=== PATIENT | female | born 1970 | race Caucasian/White ===

== ENCOUNTER → 2021-11-02 | Outpatient (CLI) | payer BC, SELFPAY ==
[2021-11-06 16:52] LABS: HPV APTIMA, High Risk Negative (Negative)
== END | disposition home or self-care (01) ==
LOC: LABSPEC 11:37
PROVIDERS: Visit Provider Student in an Organized Health Care Education/Training Program
DX: Z12.4 Encounter for screening for malignant neoplasm of cervix (principal)
CPT/HCPCS: 87624; 88175; G0145

== ENCOUNTER → 2022-02-22 | Outpatient (CLI) | payer BC, SELFPAY ==
--- NOTE | 2022-02-22 08:34 | BI_ITS ---
MAMMOGRAPHY - BILATERAL SCREENING REASON FOR EXAM: Female, 51 years old. Routine annual screening examination. PERTINENT HISTORY: Family history unknown as patient is adopted. No reported personal history of breast cancer. TECHNIQUE: Digital bilateral breast jl (3D mammographic acquisition) in the CC and MLO projections. 2-D mediolateral oblique (MLO) and craniocaudad (CC) views of both breasts were obtained. CAD: Full Field Digital Mammography with Computer Added Detection was performed. COMPARISON: Mammogram from outside hospital from 02/18/2021, 01/07/2020. FINDINGS: Breast Composition: Portions of the breasts are extremely dense which lower sensitivity of mammography. There are no dominant masses or suspicious calcifications. No other significant abnormalities are identified. There has been no significant change since the prior study. BI/SCRN MAMM (CAD)W/JL BILAT IMPRESSION: Stable bilateral screening mammogram. Yearly follow-up mammogram recommended. (A) ASSESSMENT CATEGORY: BIRADS Category 1: Negative. A letter regarding these results will be sent to the patient by the facility within 30 days. Approximately 10% of breast cancers are not detected by mammography. A normal mammogram should not delay biopsy of a clinically suspicious abnormality. Electronically Signed: Bishnu Manriquez, at 9:37 EST ,
== END | disposition home or self-care (01) ==
LOC: OPBI 08:31
PROVIDERS: Visit Provider Student in an Organized Health Care Education/Training Program
DX: Z12.31 Encounter for screening mammogram for malignant neoplasm of breast (principal)
CPT/HCPCS: 77063; 77067

== ENCOUNTER → 2023-02-09 | Outpatient (CLI) | payer BC, SELFPAY ==
[2023-02-09 13:58] LABS: Absolute Lymphocyte Count 3.73 X10^3/uL (0.83-4.51); Absolute Neutrophil Count 5.4 X10^3/uL (2.0-7.7); Basophil# 0.05 X10^3/uL; Basophil% 0.5 % (0-1); Eosinophil# 0.08 X10^3/uL; Eosinophils% 0.8 % (0-5); Hematocrit 41.4 % (37-47); Hemoglobin 13.4 g/dL (12.0-15.0); Lymphocyte # 3.73 X10^3/ul (0.83-4.51); Lymphocyte % 36.9 % (19-41); Mean Corp Hgb Conc 32.4 g/dL (32-36); Mean Corpuscular Hgb 28.6 pg (27.0-32.0); Mean Corpuscular Volume 88.3 fL (81-99); Mean Platelet Vol. 9.9 fl (6.2-12.0); Monocyte# 0.78 X10^3/uL; Monocyte% 7.7 % (0-10); NRBC Flagged by Analyzer 0 % (0-5); Neutrophil # 5.44 X10^3/uL (2.7-7.7); Neutrophil % 53.8 % (47-70); Platelet Count 330 K/mm3 (150-450); RBC Distribution Width SD 45.4 fl (35.1-43.9); Red Blood Count 4.69 M/mm3 (4.2-5.4); White Blood Count 10.1 K/mm3 (4.4-11.0)
[2023-02-09 14:17] LABS: Anion Gap 3 (5-15); BUN 17 mg/dL (7-18); BUN/Creat Ratio 18.3 RATIO (10-20); Calcium,Total 9.3 mg/dL (8.5-10.1); Chloride 105 mmol/L (98-107); Creatinine, Serum 0.93 mg/dL (0.55-1.02); EST Glomerular Filtration Rate 68 mL/min (>60); Est Glom Filt Rate - Afr Amer 82 mL/min (>60); Glucose 107 mg/dL (74-106); Potassium 3.9 mmol/L (3.5-5.1); Sodium Level 138 mmol/L (136-145)
[2023-02-09 14:43] LABS: International Normalized Ratio 0.9; Partial Thromboplast Time 28.6 Seconds (24.1-36.2); Prothrombin Time (Protime)PT. 12.6 SECONDS (11.7-14.9)
== END | disposition home or self-care (01) ==
LOC: LAB 13:21
PROVIDERS: PCP Family Medicine
DX: Z01.818 Encounter for other preprocedural examination (principal)
CPT/HCPCS: 36415; 80048; 85025; 85610; 85730

== ENCOUNTER → 2023-03-08 | Outpatient (CLI) | payer BC, SELFPAY ==
[2023-03-13 18:07] LABS: HPV APTIMA, High Risk Negative (Negative)
== END | disposition home or self-care (01) ==
PROVIDERS: PCP Family Medicine; Visit Provider Nurse Practitioner Women's Health
DX: Z12.4 Encounter for screening for malignant neoplasm of cervix (principal)
CPT/HCPCS: 87624; 88175; G0145

== ENCOUNTER → 2023-03-15 | Outpatient (CLI) | payer BC, SELFPAY ==
--- NOTE | 2023-03-15 12:14 | BI_ITS ---
MAMMOGRAPHY - BILATERAL SCREENING REASON FOR EXAM: Female, 52 years old. Routine annual screening examination. PERTINENT HISTORY: Non-contributory. TECHNIQUE: Digital bilateral breast jl (3D mammographic acquisition) in the CC and MLO projections. 2-D mediolateral oblique (MLO) and craniocaudad (CC) views of both breasts were obtained. CAD: Full Field Digital Mammography with Computer Added Detection was performed. COMPARISON: Comparison is made with prior study dated February 22, 2022. FINDINGS: Breast Composition: The breasts are heterogeneously dense, which may obscure small masses. There are no dominant masses or suspicious calcifications. No other significant abnormalities are identified. There has been no significant change since the prior study. BI/SCRN MAMM (CAD)W/JL BILAT IMPRESSION: Stable bilateral screening mammogram. Yearly follow-up mammogram recommended. (A) ASSESSMENT CATEGORY: BIRADS Category 1: Negative. A letter regarding these results will be sent to the patient by the facility within 30 days. Approximately 10% of breast cancers are not detected by mammography. A normal mammogram should not delay biopsy of a clinically suspicious abnormality. [id number] Electronically Signed: Burton Davis MD at 8:50 EST ,
== END | disposition home or self-care (01) ==
LOC: OPBI 12:14
PROVIDERS: PCP Family Medicine; Referring Provider Nurse Practitioner Women's Health; Visit Provider Nurse Practitioner Women's Health
DX: Z12.31 Encounter for screening mammogram for malignant neoplasm of breast (principal)
CPT/HCPCS: 77063; 77067

== ENCOUNTER → 2023-04-13 | Outpatient (CLI) | payer BC, SELFPAY ==
[2023-04-13 12:11] LABS: Absolute Lymphocyte Count 2.67 X10^3/uL (0.83-4.51); Absolute Neutrophil Count 3.4 X10^3/uL (2.0-7.7); Basophil# 0.06 X10^3/uL; Basophil% 0.9 % (0-1); Eosinophil# 0.07 X10^3/uL; Hematocrit 41.5 % (37-47); Hemoglobin 13.5 g/dL (12.0-15.0); Lymphocyte # 2.67 X10^3/ul (0.83-4.51); Lymphocyte % 39.1 % (19-41); Mean Corp Hgb Conc 32.5 g/dL (32-36); Mean Corpuscular Hgb 28.7 pg (27.0-32.0); Mean Corpuscular Volume 88.1 fL (81-99); Mean Platelet Vol. 10.2 fl (6.2-12.0); Monocyte# 0.63 X10^3/uL; Monocyte% 9.2 % (0-10); NRBC Flagged by Analyzer 0 % (0-5); Neutrophil # 3.37 X10^3/uL (2.7-7.7); Neutrophil % 49.5 % (47-70); Platelet Count 314 K/mm3 (150-450); RBC Distribution Width CV 13.3 % (11.6-14.6); RBC Distribution Width SD 43.7 fl (35.1-43.9); Red Blood Count 4.71 M/mm3 (4.2-5.4); White Blood Count 6.8 K/mm3 (4.4-11.0)
[2023-04-13 12:58] LABS: ALB/GLOB Ratio 1.2 RATIO (0.9-2.4); AST(SGOT) 17 U/L (15-37); Alanine Aminotransfer ALT/SGPT 25 U/L (13-56); Albumin, Serum 3.9 g/dL (3.2-5.0); Alkaline Phosphatase 73 U/L (45-117); Anion Gap 4 (5-15); BUN 13 mg/dL (7-18); BUN/Creat Ratio 17.3 RATIO (10-20); Calcium,Total 9.3 mg/dL (8.5-10.1); Chloride 109 mmol/L (98-107); Cholesterol 139 mg/dL (200); Creatinine, Serum 0.75 mg/dL (0.55-1.02); EST Glomerular Filtration Rate 86 mL/min (>60); Est Glom Filt Rate - Afr Amer 105 mL/min (>60); Globulin 3.3 g/dL (2.2-4.2); Glucose 101 mg/dL (74-106); High Density Lipoprotein 35 mg/dL; Potassium 3.8 mmol/L (3.5-5.1); Protein, Total 7.2 g/dL (6.4-8.2); Sodium Level 142 mmol/L (136-145); Thyroid Stim Hormone (TSH) 2.78 uIU/mL (0.358-3.74); Triglycerides 144 mg/dL; Very Low Density Lipoprotein 29 mg/dL (5-40)
[2023-04-13 13:57] LABS: Microalbumin,Random Urine 7.2 mg/L (NO RANGE EST.); Microalbumin:Creatinine Ratio 4.4 mg/g CRE (<30 mg/g CRE)
== END | disposition home or self-care (01) ==
LOC: MFPLAB 09:50
PROVIDERS: PCP Family Medicine; Visit Provider Family Medicine
DX: I10 Essential (primary) hypertension (principal); Z86.73 Personal history of transient ischemic attack (TIA), and cerebral infarction without residual deficits
CPT/HCPCS: 36415; 80053; 80061; 82043; 82570; 84443; 85025

== ENCOUNTER → 2023-11-01 | Outpatient (CLI) | payer BC, SELFPAY ==
--- NOTE | 2023-11-01 15:43 | MRI_ITS ---
INDICATION: visual changes, dizziness, hx CVA and caroted stent EXAMINATION: MRI - MR Brain WO/W Contrast TECHNIQUE: Multiplanar and multisequence MR images of the brain were obtained without and with gadolinium. IV Contrast Dosage and Agent: 15 ml clariscan IV contrast. COMPARISON: None FINDINGS: BRAIN PARENCHYMA: Normal midline developmental anatomy. No Chiari malformation. Unremarkable sella. Cerebellar pontine angles are clear. No evidence of intracranial space occupying mass or mass effect. No diffusion restriction. No evidence of prior hemorrhage. Left lateral inferior frontal and left parietal localized encephalomalacia with volume loss and mild gliosis compatible with prior injuries. No abnormal brain parenchymal or meningeal enhancement. 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 Minimal periventricular and subcortical T2 hyperintense chronic small vessel white matter signal change. INTERNAL AUDITORY CANALS: The internal auditory canals are well visualized and patent. No mass identified. CSF SPACES: Appropriate for age. No hydrocephalus. Basal cisterns are patent. VASCULAR SYSTEM: Normal flow voids in the major intracranial circulation. CALVARIUM, SKULL BASE, PARANASAL SINUSES AND MASTOID AIR CELLS: Clear. No expansile changes. ORBITS: Both globes, extraocular muscles, optic nerves and retrobulbar fat appear unremarkable. MRI/Brain W/WO Contrast IMPRESSION: No evidence of acute ischemic stroke or enhancing mass. 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 Electronically Signed: Eloy Zheng MD at 8:19 EDT ,
[2023-11-01 16:22] LABS: CREATININE FINGERSTICK < 1.0 mg/dL (0.55-1.02); EGFR FINGERSTICK > 60.0000 mL/min (>60)
== END | disposition home or self-care (01) ==
PROVIDERS: PCP Family Medicine; Visit Provider Family Medicine
DX: H53.9 Unspecified visual disturbance (principal); I65.29 Occlusion and stenosis of unspecified carotid artery; Z86.73 Personal history of transient ischemic attack (TIA), and cerebral infarction without residual deficits
CPT/HCPCS: 70553; A9575

== ENCOUNTER → 2024-03-11 | Outpatient (CLI) | payer BC, SELFPAY ==
[2024-03-14 14:08] LABS: HPV APTIMA, High Risk Negative (Negative)
== END | disposition home or self-care (01) ==
LOC: BWCLAB 11:00
PROVIDERS: PCP Family Medicine; Referring Provider Obstetrics & Gynecology; Visit Provider Obstetrics & Gynecology
DX: Z12.4 Encounter for screening for malignant neoplasm of cervix (principal)
CPT/HCPCS: 87624; 88175; G0145

== ENCOUNTER → 2024-03-19 | Outpatient (CLI) | payer BC, SELFPAY ==
--- NOTE | 2024-03-19 09:41 | BI_ITS ---
MAMMOGRAPHY - BILATERAL SCREENING REASON FOR EXAM: Female, 53 years old. Routine annual screening examination. PERTINENT HISTORY: Non-contributory. TECHNIQUE: Digital bilateral breast jl (3D mammographic acquisition) in the CC and MLO projections. 2-D mediolateral oblique (MLO) and craniocaudad (CC) views of both breasts were obtained. CAD: Full Field Digital Mammography with Computer Added Detection was performed. COMPARISON: Comparison is made with prior study dated September 13, 2023 and February 22, 2022. FINDINGS: Breast Composition: The breasts are heterogeneously dense, which may obscure small masses. There is a 5.5 mm x 3 mm well-defined nodule in the upper lateral aspect of the left breast. Correlation with ultrasound recommended. Stable benign-appearing bilateral axillary lymph nodes. No other significant abnormalities are identified. BI/SCRN MAMM (CAD)W/JL BILAT IMPRESSION: 5.5 mm x 3 mm well-defined nodule in the upper lateral aspect of the left breast as described. Correlation with ultrasound is recommended. ASSESSMENT CATEGORY: BIRADS Category 0: Incomplete. Need additional imaging evaluation. A letter regarding these results will be sent to the patient by the facility within 30 days. Approximately 10% of breast cancers are not detected by mammography. A normal mammogram should not delay biopsy of a clinically suspicious abnormality. [id number] Electronically Signed: Burton Davis MD at 10:55 EST ,
== END | disposition home or self-care (01) ==
LOC: OPBI 09:40
PROVIDERS: PCP Family Medicine; Referring Provider Obstetrics & Gynecology; Visit Provider Obstetrics & Gynecology
DX: Z12.31 Encounter for screening mammogram for malignant neoplasm of breast (principal)
CPT/HCPCS: 77063; 77067

== ENCOUNTER → 2024-03-21 | Outpatient (CLI) | payer BC, SELFPAY ==
--- NOTE | 2024-03-21 08:31 | US_ITS ---
STUDY: ULTRASOUND BREAST - LEFT REASON FOR EXAM: Female, 53 years old. Abnormal screening mammogram. TECHNIQUE: Axial and longitudinal images of the LEFT breast were performed with a high resolution ultrasound transducer. # OF IMAGES: 22 COMPARISON: Comparison is made with prior study dated March 19, 2024. FINDINGS: LEFT Breast: The upper outer quadrant of the left breast was examined with ultrasound. There is a 5 mm x 6 mm x 3 mm cyst at the 2:00 position of the breast at 8 cm from the nipple. US/Breast Limited Unilateral IMPRESSION: 5 mm x 6 mm x 3 mm cyst at the 2:00 position of the breast at 8 cm from the nipple. ASSESSMENT CATEGORY: BIRADS Category 2: Benign. A letter regarding these results will be sent to the patient by the facility within 30 days. Electronically Signed: Burton Davis MD at 12:48 EST ,
== END | disposition home or self-care (01) ==
PROVIDERS: PCP Family Medicine; Referring Provider Obstetrics & Gynecology; Visit Provider Obstetrics & Gynecology
DX: N63.21 Unspecified lump in the left breast, upper outer quadrant (principal)
CPT/HCPCS: 76642

== ENCOUNTER → 2024-06-03 | Outpatient (CLI) | payer SELFPAY ==
[2024-06-03 18:15] LABS: Absolute Lymphocyte Count 4.19 X10^3/uL (0.83-4.51); Absolute Neutrophil Count 4.1 X10^3/uL (2.0-7.7); Basophil# 0.04 X10^3/uL; Basophil% 0.4 % (0-1); Eosinophil# 0.09 X10^3/uL; Hematocrit 39.2 % (37-47); Hemoglobin 12.9 g/dL (12.0-15.0); Lymphocyte # 4.19 X10^3/ul (0.83-4.51); Lymphocyte % 45.4 % (19-41); Mean Corp Hgb Conc 32.9 g/dL (32-36); Mean Corpuscular Hgb 28.7 pg (27.0-32.0); Mean Corpuscular Volume 87.1 fL (81-99); Mean Platelet Vol. 9.7 fl (6.2-12.0); Monocyte# 0.74 X10^3/uL; NRBC Flagged by Analyzer 0 % (0-5); Neutrophil # 4.13 X10^3/uL (2.7-7.7); Neutrophil % 44.9 % (47-70); Platelet Count 341 K/mm3 (150-450); RBC Distribution Width SD 44.7 fl (35.1-43.9); White Blood Count 9.2 K/mm3 (4.4-11.0)
[2024-06-03 18:45] LABS: Erythrocyte Sedimentation Rate 16 mm/hr (0-30)
[2024-06-03 19:32] LABS: CRP 5.81 mg/L (0.0-3.0)
== END | disposition home or self-care (01) ==
LOC: MTLAB 17:02
PROVIDERS: PCP Family Medicine; Referring Provider Ophthalmology; Visit Provider Ophthalmology
DX: G45.3 Amaurosis fugax (principal)
CPT/HCPCS: 36415; 85025; 85652; 86140

== ENCOUNTER → 2024-06-17 | Outpatient (CLI) | payer BC, SELFPAY ==
[2024-06-17 11:44] LABS: ALB/GLOB Ratio 1.6 RATIO (0.9-2.4); AST(SGOT) 20 U/L (<=31); Alanine Aminotransfer ALT/SGPT 20 U/L (<=34); Albumin, Serum 4.2 g/dL (3.5-5.0); Alkaline Phosphatase 68 U/L (35-104); Anion Gap 11 (5-15); BUN 13 mg/dL (4-19); BUN/Creat Ratio 18.1 RATIO (10-20); Calcium,Total 9.2 mg/dL (7.6-11.0); Carbon Dioxide 24.6 mmol/L (21.0-32.0); Chloride 103 mmol/L (98-108); Cholesterol 178 mg/dL (<=200); Creatinine, Serum 0.71 mg/dL (0.70-1.20); EST Glomerular Filtration Rate 103 (>60); Globulin 2.5 g/dL (2.2-4.2); Glucose 96 mg/dL (70-99); High Density Lipoprotein 34 mg/dL; Low Density Lipoprotein Calc. 106 mg/dL; Potassium 3.9 mmol/L (3.3-5.1); Protein, Total 6.7 g/dL (5.9-8.4); Sodium Level 139 mmol/L (133-145); Total Bilirubin 0.26 mg/dL (0.00-1.30); Triglycerides 192 mg/dL; Very Low Density Lipoprotein 38 mg/dL (5-40); cholesterol:hdl ratio screen 5.27
== END | disposition home or self-care (01) ==
LOC: MTLAB 08:54
PROVIDERS: PCP Family Medicine; Referring Provider Family Medicine; Visit Provider Family Medicine
DX: Z86.73 Personal history of transient ischemic attack (TIA), and cerebral infarction without residual deficits (principal)
CPT/HCPCS: 36415; 80053; 80061

== ENCOUNTER → 2024-06-18 | Outpatient (CLI) | payer BC, SELFPAY ==
--- NOTE | 2024-06-18 12:01 | MRI_ITS ---
PROCEDURE: BRAIN W/WO CONTRAST 06/18/2024 REASON FOR EXAM: OCCLUSION OF LT ICA,STENOSIS TECHNIQUE: Brain MRI without and with intravenous contrast with additional dedicated imaging of the IACs. Multiplanar and multisequence images were obtained. CONTRAST: 15 mL of intravenous Clariscan was administered. COMPARISON: None FINDINGS: No diffusion restriction to suggest acute/subacute ischemia. No evidence of acute intracranial hemorrhage, midline shift or mass effect. A couple of small areas of cortical encephalomalacia within the left frontal and frontoparietal lobe consistent with chronic insults. No other parenchymal signal abnormalities. No hydrocephalus. Cerebral volume is age-appropriate. No pathologic enhancement. Loss of the distal left ICA flow void consistent with history of left carotid occlusion. Globes are intact. Paranasal sinuses and mastoid air cells are relatively clear. MRI/Brain W/WO Contrast IMPRESSION: 1. No acute intracranial abnormality or pathologic enhancement. 2. Small areas of cortical encephalomalacia in the left cerebrum as above consi stent with old insults. 3. Occlusion of the distal left ICA. Reading Location: [facility]
--- NOTE | 2024-06-18 12:02 | MRI_ITS ---
PROCEDURE: MRA HEAD ONLY WITHOUT CONTRAST 06/18/2024 REASON FOR EXAM: L INTERNAL CAROTID ATRERY OCCULSION, R STENOSIS COMPARISON: None TECHNIQUE: 3D Time of Flight MRA of the head. Multiplanar multisequential imaging was performed without IV contrast administration. FINDINGS: Non-opacification of the distal left internal carotid artery including its cervical, petrous, cavernous and clinoid segments with reconstitution at the terminus. Distal vertebral arteries are without significant stenosis. Visualized cerebellar arteries are without occlusion. Basilar artery is without significant stenosis. Posterior cerebral arteries are without significant stenosis. Middle cerebral arteries are without significant stenosis. Anterior cerebral arteries are without significant stenosis. No sizable aneurysm. MRI/MRA Head ONLY without Contrast IMPRESSION: 1. Occlusion of the distal left ICA as above. 2. No high-grade stenosis, occlusion or sizable aneurysm involving the [facility]. Reading Location: [facility]
--- NOTE | 2024-06-18 12:03 | MRI_ITS ---
PROCEDURE: MRA NECK WITHOUT CONTRAST 06/18/2024 REASON FOR EXAM: L INTERNAL CAROTID ATRERY OCCULSION, R STENOSIS, TECHNIQUE: Neck MRA without contrast using 2D and 3D Time of Flight technique. FINDINGS: Flow: 2D Time of Flight images demonstrate antegrade carotid and vertebral artery flow. Carotids: No evidence of significant stenosis on time of flight imaging. Limited noncontrast exam. Right ICA stenosis (NASCET): Occluded proximally with reconstitution in the mid cervical ICA. % Left ICA stenosis (NASCET): Occluded % Vertebrals: Codominant without evidence of high grade stenosis. Arch: MRI/MRA Neck without Contrast IMPRESSION: Occluded internal carotid arteries bilaterally. Patent vertebral arteries bilaterally. Reading Location: [facility]
== END | disposition home or self-care (01) ==
LOC: OPMRI 11:54
PROVIDERS: PCP Family Medicine
DX: I65.23 Occlusion and stenosis of bilateral carotid arteries (principal); Z95.828 Presence of other vascular implants and grafts
CPT/HCPCS: 70544; 70547; 70553; A9575

== ENCOUNTER → 2024-07-03 | Outpatient (CLI) | payer BC, SELFPAY ==
[2024-07-03 13:34] LABS: Cholesterol 181 mg/dL (<=200); High Density Lipoprotein 34 mg/dL; Low Density Lipoprotein Calc. 106 mg/dL; Triglycerides 202 mg/dL; Very Low Density Lipoprotein 40 mg/dL (5-40); cholesterol:hdl ratio screen 5.28
== END | disposition home or self-care (01) ==
LOC: MTLAB 09:46
PROVIDERS: PCP Family Medicine; Referring Provider Family Medicine; Visit Provider Family Medicine
DX: Z86.73 Personal history of transient ischemic attack (TIA), and cerebral infarction without residual deficits (principal)
CPT/HCPCS: 36415; 80061

== ENCOUNTER → 2024-08-28 | Outpatient (CLI) | payer BC, SELFPAY ==
[2024-08-28 12:41] LABS: Hematocrit 40.4 % (37-47); Hemoglobin 13.3 g/dL (12.0-15.0); Mean Corp Hgb Conc 32.9 g/dL (32-36); Mean Corpuscular Volume 87.1 fL (81-99); Mean Platelet Vol. 10.3 fl (6.2-12.0); Platelet Count 332 K/mm3 (150-450); RBC Distribution Width CV 13.6 % (11.6-14.6); RBC Distribution Width SD 43.4 fl (35.1-43.9); Red Blood Count 4.64 M/mm3 (4.2-5.4); White Blood Count 7.7 K/mm3 (4.4-11.0)
[2024-08-28 13:41] LABS: AST(SGOT) 21 U/L (<=31); Alanine Aminotransfer ALT/SGPT 18 U/L (<=34); Albumin, Serum 4.5 g/dL (3.5-5.0); Alkaline Phosphatase 72 U/L (35-104); Anion Gap 11 (5-15); BUN 10 mg/dL (4-19); BUN/Creat Ratio 13.9 RATIO (10-20); Calcium,Total 9.4 mg/dL (7.6-11.0); Carbon Dioxide 24.9 mmol/L (21.0-32.0); Chloride 103 mmol/L (98-108); Cholesterol 253 mg/dL (<=200); Globulin 2.9 g/dL (2.2-4.2); Glucose 96 mg/dL (70-99); Low Density Lipoprotein Calc. 163 mg/dL; Potassium 3.9 mmol/L (3.3-5.1); Triglycerides 265 mg/dL; Very Low Density Lipoprotein 53 mg/dL (5-40); Vitamin B12 975 pg/mL (180-914); cholesterol:hdl ratio screen 6.89
[2024-08-30 12:08] LABS: ANTINUCLEAR ANTIBODIES DIRECT Negative (Negative); Vitamin D 1,25-Dihydroxy 41.9 pg/mL (24.8-81.5)
== END | disposition home or self-care (01) ==
PROVIDERS: PCP Family Medicine; Referring Provider Psychiatry & Neurology Neurology; Visit Provider Psychiatry & Neurology Neurology
DX: I67.5 Moyamoya disease (principal); Z86.73 Personal history of transient ischemic attack (TIA), and cerebral infarction without residual deficits
CPT/HCPCS: 36415; 80053; 80061; 81240; 81241; 82607; 82652; 82747; 84425; 84443; 85014; 85027; 85300; 85301; 85302; 85303; 85305; 85306; 85652; 86038; 86147; 86160; 86162; 86225

== ENCOUNTER → 2024-09-06 | Outpatient (CLI) | payer BC, SELFPAY ==
--- OUTSIDE RECORDS SUMMARY | 2024-09-06 08:23 | XMS RPT_ITS | CCD ---
Author Organization [facility] Care Team Providers Care Sleeve Setter Name Role Phone Care Physician, No Primary Referring Provider Un available Lyndon EDUCATIONAL AID, ANANDA Pardo Attending Provider Dr. James Arteaga Primary Care Provider [phone] Chandler MARCELINO, Dr. Ramirez Primary Care Provider Dr. James Arteaga MD Referring Provider Dr. Natalie Elizabeth DO Attending Provider Dr. Natalie Elizabeth DO Referring Provider Susan MARCELINO, Dr. Redmond Attending Provider Dr. Ruy Davis MD Referring Provider Dr. James Arteaga MD Attending Provider DAVID HILLIARD Attending Provider DAVID HILLIARD Referring Provider Dr. James Arteaga MD Primary Care Provider Chandler MARCELINO, Dr. Ramirez Referring Provider Yaya MARCELINO, Dr. Foreman Attending Provider James Arteaga Attending Unavailable Chandler, James Referring Unavailable Arteaga, James Primary Care Unavailable JAKOB POLLACK Attending Unavailable JAKOB POLLACK Referring Unavailable Arteaga, James Primary Care Unavailable Ruy Davis Attending Unavailable Ruy Davis Referring Unavailable Arteaga, James Primary Care Unavailable Arteaga, James Attending Unavailable Arteaga, James Referring Unavailable Arteaga, James Primary Care Unavailable Arteaga, James Primary Care Unavailable JAKOB POLLACK Referring Unavailable James Arteaga Attending Unavailable Natalie Elizabeth Referring Unavailabl e Arteaga, James Primary Care Unavailable Natalie Elizabeth Attending Unavailamie Arteaga, James Primary Care Unavailable Ahsan Javier Attending Unavailable Ahsan Javier Referring Unavailable Arteaga, James Referring Unavailable Arteaga, James Primary Care Unavailable Ahsan Javier Attending Unavailable Arteaga, James Referring Unavailable Arteaga, James Primary Care Unavailable Natalie Elizabeth Attending Unavailamie e Chandler, James Primary Care Unavailable Natalie Elizabeth Attending Natalie Valdez Referring Unavailabl e Chandler, James Primary Care Unavailable Natalie Elizabeth Attending Natalie Valdez Referring Unavailamie Javier MD, Dr. Foreman Referring Provider Allergies Allergy Classification Reported Allergen(s) Allergy Type Date of Onset Reaction(s) Facility (8 sources) Codeine Drug Allergy 03-08-2023 Vomiting [facility] (8 sources) Penicillins Allergy to substance 03-08-2023 Swelling [facility] Comment on above: Face and neck swelli ng (1 source) Codeine Drug Allergy 08-27-2024 [facility] Repository (1 source) Penicillins Drug allergy (disorder) 08-27-2024 [facility] Repository Medications Current Medications Medication Drug Class(es) Dates Sig (Normalized) Sig (Original) aspirin 81 mg delayed release oral tablet (8 sources) Platelet Aggregation Inhibitor, Nonsteroidal Anti-inflammatory Drug Start: 03-08-2023 take 1 tablet by mouth once daily Aspirin (Adult Aspirin Regimen) 81 mg tablet,delayed release (DR/EC) Active 81 mg PO DAILY March 08, 2023 1:00am clopidogrel 75 mg oral tablet (10 sources) P2Y12 Platelet Inhibitor Start: 08-27-2024 take 1 tablet by mouth once daily Clopidogrel 75 mg tablet Active 75 mg PO daily August 27, 2024 12:00am Start: 03-08-2023 End: 03-11-2024 take 1 tablet by mouth once daily Clopidogrel (Plavix) 75 mg tablet Discontinued 75 mg PO DAILY March 08, 2023 1:00am March 11, 2024 9:22am Gshdxivp-Igayhg-Rguqmnnk Acid 500 mg-800 mcg- 50 mg capsule (2 sources) Start: 08-27-2024 take 1 capsule by mouth once daily Auzvnayv-Dbumuh-Otfpcccy Acid 500 mg-800 mcg- 50 mg capsule Active 1 NMA PO daily August 27, 2024 12:00am hydroCHLOROthiazide 12.5 mg oral capsule (12 sources) Thiazide Diuretic Start: 08-27-2024 take 6.25 mg by mouth once daily Hydrochlorothiazide 12.5 mg capsule Active 6.25 mg PO DAILY August 27, 2024 8:56am Start: 08-27-2024 End: 08-27-2024 take 6.25 mg by mouth once daily Hydrochlorothiazide 12.5 mg tablet Discontinued 6.25 mg PO daily August 27, 2024 12:00am August 27, 2024 10:16am Start: 03-08-2023 End: 08-27-2024 take 1 capsule by mouth once daily Hydrochlorothiazide 12.5 mg capsule Discontinued 12.5 mg PO DAILY March 08, 2023 1:00am August 27, 2024 8:58am Multivitamin preparation (3 sources) Start: 03-08-2023 take 1 tablet by mouth once daily Multivitamin Active 1 TABLET PO DAILY March 08, 2023 12:00am Multivitamin tablet (5 sources) Start: 03-08-2023 Multivitamin t ablet Active 1 {tbl} PO DAILY March 08, 2023 1:00am sertraline 100 mg oral tablet (10 sources) Serotonin Reuptake Inhibitor Start: 08-27-2024 Sertraline (Zoloft) 100 mg tablet Active 50 mg PO DAILY August 27, 2024 8:57am Start: 03-08-2023 End: 08-27-2024 take 1 tablet by mouth once daily Sertraline (Zoloft) 100 mg tablet Discontinued 100 mg PO DAILY March 08, 2023 1:00am August 27, 2024 8:58am Completed/Discontinued Medications Medication Drug Class(es) Dates Sig (Normalized) Sig (Original) atorvastatin 40 mg oral tablet (8 sources) HMG-CoA Reductase Inhibitor Start: 03-08-2023 End: 08-27-2024 take 1 tablet by mouth once daily Atorvastatin (Lipitor) 40 mg tablet Discontinued 40 mg PO DAILY March 08, 2023 1:00am August 27, 2024 8:56am Fezolinetant (5 sources) Start: 03-11-2024 End: 08-27-2024 take 1 tablet by mouth once daily Fezolinetant (Veozah) 45 mg tablet Discontinued 45 mg PO daily 25 02March 11, 2024 1:00am August 27, 2024 8:56am Start: 03-11-2024 take 1 tablet by once daily Fezolinetant (Veozah) 45 mg tablet Active 45 mg PO daily March 11, 2024 1:00am Problems Active Problems Problem Classification Problem Date Documented Date Episodic/Chronic Mood disorders (8 sources) Depressive disorder; Translations: [Depression] 03-08-2023 Chronic Occlusion or stenosis of precerebral arteries (1 source) Occlusion and stenosis of bilateral carotid arteries; Translations: [Occlusion and stenosis of bilateral carotid arteries] Onset: 06-24-2024 Chronic Other and ill-defined cerebrovascular disease (9 sources) Moyamoya disease; 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 Other and ill-defined cerebrovascular disease (2 sources) Cerebrovascular disease; Translations: [Cerebrovascular disease, unspecified] 08-27-2024 Chronic Other and ill-defined cerebrovascular disease (1 source) Moyamoya disease; 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] Onset: 08-28-2024 Chronic Other circulatory disease (2 sources) Personal history of transient ischemic attack (TIA), and cerebral infarction without residual deficits; Translations: [Personal history of transient ischemic attack (TIA), and cerebral infarction without residual deficits] Onset: 07-08-2024 Episodic Other circulatory disease (2 sources) History of cerebrovascular accident; Translations: [Personal history of transient ischemic attack (TIA), and cerebral infarction without residual deficits] 08-27-2024 Episodic Other screening for suspected conditions (not mental disorders or infectious disease) (10 sources) Abnormal cervical Papanicolaou smear; Translations: [Unspecified abnormal cytological findings in specimens from cervix uteri] Onset: 03-30-2024 03-08-2023 Episodic Comment on above: conization 20 yr ago . Abnormal pap with +hpv 2021 neg pap and HPV. 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] Onset: 06-06-2024 Chronic Past or Other Problems Problem Classification Problem Date Documented Da te Episodic/Chronic Blindness and vision defects (1 source) Unspecified visual disturbance; Translations: [Unspecified visual disturbance] Onset: 11-21-2023 Episodic Nonmalignant breast conditions (1 source) Unspecified lump in the left breast, upper outer quadrant; Translations: [Unspecified lump in the left breast, upper outer quadrant] Onset: 04-10-2024 Episodic Results Test Name Value Interpretation Reference Range Facility GIOVANNA w/ Reflex Mult Confirmon 08-30-2024 ANTI-DNA (DS)AB TNP Normal [facility] Comment on above: Performed By: #### L 100.0500, L101.9900, L503.0106, L500.4050, L3300.0960, L3100.5450, L501.9520, L500.4100 ####[facility] [address] [place], [place], [phone] ANTI-SS-A TNP Normal [facility] Comment on above: Performed By: #### L 100.0500, L101.9900, L503.0106, L500.4050, L3300.0960, L3100.5450, L501.9520, L500.4100 ####[facility] [address] [place], [place], [phone] ANTI-SS-B TNP Normal [facility] Comment on above: Performed By: #### L 100.0500, L101.9900, L503.0106, L500.4050, L3300.0960, L3100.5450, L501.9520, L500.4100 ####[facility] [address] [place], [address] Vitamin D 1,25-Dihydroxyon 0 08-30-2024 VIT D 1,25 DIHY 41.9 pg/mL Normal 24.8-81.5 [facility] Comment on above: Performed By: #### L 100.0500, L101.9900, L503.0106, L500.4050, L3300.0960, L3100.5450, L501.9520, L500.4100 ####[facility] [address] [place], [place], [phone] Anion gap in Serum or Plasma Ordered By: Ahsan Javier on 08-28-2024 Anion gap [Moles/Vol] 11 mmol/L 5-15 [facility] BUN/creatinine ratioOrdered By: Ahsan Javier on 08-28-2024 Urea nitrogen/Creatinine [Mass ratio] 13.9 mg/mg 10-20 [facility] Bilirubin, totalOrdered By: Ahsan Javier on 08-28-2024 Bilirubin [Mass/Vol] 0.39 mg/dL 0.00-1.30 [facility] CBC-Complete Blood Cnt No Di ffon 08-28-2024 Erythrocyte distribution width (RBC) [Ratio] 13.6 % Normal 11.6-14.6 [facility] Comment on above: Performed By: #### L 100.0500, L101.9900, L503.0106, L500.4050, L3300.0960, L3100.5450, L501.9520, L500.4100 ####[facility] [address] [place], [place], [phone] Hematocrit (Bld) [Volume fraction] 40.4 % Normal 37-47 [facility] Comment on above: Performed By: #### L 100.0500, L101.9900, L503.0106, L500.4050, L3300.0960, L3100.5450, L501.9520, L500.4100 ####[facility] [address] [place], [address] Hemoglobin (Bld) [Mass/Vol] 13.3 g/dL Normal 12.0-15.0 [facility] Comment on above: Performed By: #### L 100.0500, L101.9900, L503.0106, L500.4050, L3300.0960, L3100.5450, L501.9520, L500.4100 ####[facility] [address] [place], [address]( MCH (RBC) [Entitic mass] 28.7 pg Normal 27.0-32.0 [facility] Comment on above: Performed By: #### L 100.0500, L101.9900, L503.0106, L500.4050, L3300.0960, L3100.5450, L501.9520, L500.4100 ####[facility] [address] [place], [address] MCHC (RBC) [Mass/Vol] 32.9 g/dL Normal 32-36 [facility] Comment on above: Performed By: #### L 100.0500, L101.9900, L503.0106, L500.4050, L3300.0960, L3100.5450, L501.9520, L500.4100 ####[facility] [address] [place], [address] MCV (RBC) [Entitic vol] 87.1 fL Normal 81-99 [facility] Comment on above: Performed By: #### L 100.0500, L101.9900, L503.0106, L500.4050, L3300.0960, L3100.5450, L501.9520, L500.4100 ####[facility] [address] [place], [address] Platelet mean volume (Bld) [Entitic vol] 10.3 fL Normal 6.2-12.0 [facility] Comment on above: Performed By: #### L 100.0500, L101.9900, L503.0106, L500.4050, L3300.0960, L3100.5450, L501.9520, L500.4100 ####[facility] [address] [place], [address] Platelets (Bld) [#/Vol] 332 10*3/uL Normal 150-450 [facility] Comment on above: Performed By: #### L 100.0500, L101.9900, L503.0106, L500.4050, L3300.0960, L3100.5450, L501.9520, L500.4100 ####[facility] [address] [place], [address] RBC (Bld) [#/Vol] 4.64 10*6/uL Normal 4.2-5.4 [facility] Comment on above: Performed By: #### L 100.0500, L101.9900, L503.0106, L500.4050, L3300.0960, L3100.5450, L501.9520, L500.4100 ####[facility] [address] [place], [phone]) RDW SD 43.4 fl Normal 35.1-43.9 [facility] Comment on above: Performed By: #### L 100.0500, L101.9900, L503.0106, L500.4050, L3300.0960, L3100.5450, L501.9520, L500.4100 ####[facility] [address] [place], [address] WBC (Bld) [#/Vol] 7.7 10*3/uL Normal 4.4-11.0 [facility] Comment on above: Performed By: #### L 100.0500, L101.9900, L503.0106, L500.4050, L3300.0960, L3100.5450, L501.9520, L500.4100 ####[facility] [address] [place], [place], [phone] Calculated very low density lipoprotein (VLDL) cholesterol measurementOrdered By: Ahsan Javier on 08-28-2024 Calculated very low density lipoprotein (VLDL) cholesterol measurement 53 mg/dL High 5-40 [facility] Carbon dioxide, total [Moles /volume] in Central venous bloodOrdered By: Ahsan Javier on 08-28-2024 CO2 [Moles/Vol] 24.9 mmol/L 21.0-32.0 [facility] Chloride assayOrdered By: Ra debra Javier on 08-28-2024 Chloride [Moles/Vol] 103 mmol/L 98-108 [facility] Comprehensive Metabolic Prof ilon 08-28-2024 Albumin [Mass/Vol] 4.5 g/dL Normal 3.5-5.0 [facility] Comment on above: Performed By: #### L 100.0500, L101.9900, L503.0106, L500.4050, L3300.0960, L3100.5450, L501.9520, L500.4100 ####[facility] [address] [place], [address] Albumin/Globulin [Mass ratio] 1.6 {ratio} Normal 0.9-2.4 [facility] Comment on above: Performed By: #### L 100.0500, L101.9900, L503.0106, L500.4050, L3300.0960, L3100.5450, L501.9520, L500.4100 ####[facility] [address] [place], [place], [phone] ALK PHOS 72 U/L Normal 35-104 [facility] Comment on above: Performed By: #### L 100.0500, L101.9900, L503.0106, L500.4050, L3300.0960, L3100.5450, L501.9520, L500.4100 ####[facility] [address] [place], [address] ALT [Catalytic activity/Vol] 18 U/L Normal <=34 [facility] Comment on above: Performed By: #### L 100.0500, L101.9900, L503.0106, L500.4050, L3300.0960, L3100.5450, L501.9520, L500.4100 ####[facility] [address] [place], [address] AST [Catalytic activity/Vol] 21 U/L Normal <=31 [facility] Comment on above: Performed By: #### L 100.0500, L101.9900, L503.0106, L500.4050, L3300.0960, L3100.5450, L501.9520, L500.4100 ####[facility] [address] [place], [address] Bilirubin [Mass/Vol] 0.39 mg/dL Normal 0.00-1.30 [facility] Comment on above: Performed By: #### L 100.0500, L101.9900, L503.0106, L500.4050, L3300.0960, L3100.5450, L501.9520, L500.4100 ####[facility] [address] [place], [address] BUN/CRE 13.9 RATIO Normal 10-20 [facility] Comment on above: Performed By: #### L 100.0500, L101.9900, L503.0106, L500.4050, L3300.0960, L3100.5450, L501.9520, L500.4100 ####[facility] [address] [place], [address] Calcium [Mass/Vol] 9.4 mg/dL Normal 7.6-11.0 [facility] Comment on above: Performed By: #### L 100.0500, L101.9900, L503.0106, L500.4050, L3300.0960, L3100.5450, L501.9520, L500.4100 ####[facility] [address] [place], [address] Chloride [Moles/Vol] 103 mmol/L Normal 98-108 [facility] Comment on above: Performed By: #### L 100.0500, L101.9900, L503.0106, L500.4050, L3300.0960, L3100.5450, L501.9520, L500.4100 ####[facility] [address] [place], [place], [phone] CO2 [Moles/Vol] 24.9 mmol/L Normal 21.0-32.0 [facility] Comment on above: Performed By: #### L 100.0500, L101.9900, L503.0106, L500.4050, L3300.0960, L3100.5450, L501.9520, L500.4100 ####[facility] [address] [place], [place], [phone] Creatinine [Mass/Vol] 0.71 mg/dL Normal 0.70-1.20 [facility] Comment on above: Performed By: #### L 100.0500, L101.9900, L503.0106, L500.4050, L3300.0960, L3100.5450, L501.9520, L500.4100 ####[facility] [address] [place], [place], [phone] GAP 11 Normal 5-15 [facility] Comment on above: Performed By: #### L 100.0500, L101.9900, L503.0106, L500.4050, L3300.0960, L3100.5450, L501.9520, L500.4100 ####[facility] [address] [place], [place], [phone] GFR/1.73 sq M.predicted among non-blacks MDRD (S/P/Bld) [Vol rate/Area] 102 mL/min/{1.73_m2} Normal >60 [facility] Comment on above: Result Comment: mL/m in/1.73m2 CKD-EPI Creatinine Equation (2020) Performed By: #### L 100.0500, L101.9900, L503.0106, L500.4050, L3300.0960, L3100.5450, L501.9520, L500.4100 ####[facility] [address] [place], [address] Globulin (S) [Mass/Vol] 2.9 g/dL Normal 2.2-4.2 [facility] Comment on above: Performed By: #### L 100.0500, L101.9900, L503.0106, L500.4050, L3300.0960, L3100.5450, L501.9520, L500.4100 ####[facility] [address] [place], [address] Glucose [Mass/Vol] 96 mg/dL Normal 70-99 [facility] Comment on above: Performed By: #### L 100.0500, L101.9900, L503.0106, L500.4050, L3300.0960, L3100.5450, L501.9520, L500.4100 ####[facility] [address] [place], [address] Potassium [Moles/Vol] 3.9 mmol/L Normal 3.3-5.1 [facility] Comment on above: Performed By: #### L 100.0500, L101.9900, L503.0106, L500.4050, L3300.0960, L3100.5450, L501.9520, L500.4100 ####[facility] [address] [place], [address] Sodium [Moles/Vol] 139 mmol/L Normal 133-145 [facility] Comment on above: Performed By: #### L 100.0500, L101.9900, L503.0106, L500.4050, L3300.0960, L3100.5450, L501.9520, L500.4100 ####[facility] [address] [place], [address] T PROT 7.4 g/dL Normal 5.9-8.4 [facility] Comment on above: Performed By: #### L 100.0500, L101.9900, L503.0106, L500.4050, L3300.0960, L3100.5450, L501.9520, L500.4100 ####[facility] [address] [place], [place], [phone] Urea nitrogen [Mass/Vol] 10 mg/dL Normal 4-19 [facility] Comment on above: Performed By: #### L 100.0500, L101.9900, L503.0106, L500.4050, L3300.0960, L3100.5450, L501.9520, L500.4100 ####[facility] [address] [place], [place], [phone] Erythrocyte Sed Rateon 08-28 SED RATE 12 mm/hr Normal 0-30 [facility] Comment on above: Performed By: #### L 100.0500, L101.9900, L503.0106, L500.4050, L3300.0960, L3100.5450, L501.9520, L500.4100 ####[facility] [address] [place], [place], [phone] Erythrocyte distribution wid th ratioOrdered By: Ahsan Javier on 08-28-2024 Erythrocyte distribution width (RBC) [Ratio] 13.6 % 11.6-14.6 [facility] Erythrocyte distribution wid th standard deviationOrdered By: Ahsan Javier on 08-28-2024 Erythrocyte distribution width (RBC) [Ratio] 43.4 fl 35.1-43.9 [facility] Erythrocyte sedimentation ra teOrdered By: Ahsan Javier on 08-28-2024 ESR (Bld) [Velocity] 12 mm/h 0-30 [facility] Glomerular filtration rate ( GFR) estimation/1.73 sq m using serum, plasma, or whole bOrdered By: Ahsan Javier on 08-28-2024 GFR/1.73 sq M.predicted among non-blacks MDRD (S/P/Bld) [Vol rate/Area] 102 mL/min/{1.73_m2} >60 [facility] Comment on above: mL/min/1.73m2 CKD-EP I Creatinine Equation (2020) Hematocrit Auto (Bld) [Volum e fraction]Ordered By: Ahsan Javier on 08-28-2024 Hematocrit (Bld) [Volume fraction] 40.4 % 37-47 [facility] Hemoglobin measurementOrdere d By: Ahsan Javier on 08-28-2024 Hemoglobin (Bld) [Mass/Vol] 13.3 g/dL 12.0-15.0 [facility] LDL calc ser/plasOrdered By: Ahsan Javier on 08-28-2024 Cholesterol in LDL [Mass/Vol] 163 mg/dL [facility] Comment on above: Nuxoyszjen=917-010 m g/dL & Higher Sboq=961 mg/dL or greater Laboratory - Chemistry and C hemistry - challengeOrdered By: Ahsan Javier on 08-28-2024 AST [Catalytic activity/Vol] 21 U/L <32 [facility] Lipid Profileon 08-28-2024 CHOL:HDL 6.89 Normal [facility] Comment on above: Performed By: #### L 100.0500, L101.9900, L503.0106, L500.4050, L3300.0960, L3100.5450, L501.9520, L500.4100 ####[facility] [address] [place], [place], [phone] Cholesterol [Mass/Vol] 253 mg/dL High <=200 [facility] Comment on above: Result Comment: Chol esterol level, Desirable <200 mg/dL Borderline high cholesterol 200-239 mg/dL High cholesterol >=240 mg/dL Recommendations of the NCEP Adult Treatment Panel for the following risk-cutoff thresholds for the [place] population. Performed By: #### L 100.0500, L101.9900, L503.0106, L500.4050, L3300.0960, L3100.5450, L501.9520, L500.4100 ####[facility] [address] [place], [address] Cholesterol in HDL [Mass/Vol] 37 mg/dL Low [facility] Comment on above: Result Comment: Bertha onal Cholesterol Education Program (NCEP) guidelines: <40 mg/dL: Low HDL-cholesterol (major risk factor for CHD) >= 60 mg/dL: High HDL-cholesterol (negative risk factor for CHD) HDL-cholesterol is affected by a number of factors, e.g. smoking, exercise, hormones, sex and age. Performed By: #### L 100.0500, L101.9900, L503.0106, L500.4050, L3300.0960, L3100.5450, L501.9520, L500.4100 ####[facility] [address] [place], [address] Cholesterol in LDL [Mass/Vol] 163 mg/dL Normal [facility] Comment on above: Result Comment: Bord yjksjt=099-096 mg/dL Higher Txul=314 mg/dL or greater Performed By: #### L 100.0500, L101.9900, L503.0106, L500.4050, L3300.0960, L3100.5450, L501.9520, L500.4100 ####[facility] [address] [place], [address] Cholesterol in VLDL [Mass/Vol] 53 mg/dL High 5-40 [facility] Comment on above: Performed By: #### L 100.0500, L101.9900, L503.0106, L500.4050, L3300.0960, L3100.5450, L501.9520, L500.4100 ####[facility] [address] [place], [address] Triglyceride [Mass/Vol] 265 mg/dL High [facility] Comment on above: Result Comment: The drugs N-Acetylcysteine and Metamizole may falsely depress this assay. Normal range: <150 mg/dL Borderline High: 150-199 mg/dL High: 200-499 mg/dL Very High: >500 mg/dL Performed By: #### L 100.0500, L101.9900, L503.0106, L500.4050, L3300.0960, L3100.5450, L501.9520, L500.4100 ####[facility] [address] [place], [address] MCV (mean corpuscular volume ) determinationOrdered By: Ahsan Javier on 08-28-2024 MCV (RBC) [Entitic vol] 87.1 fL 81-99 [facility] Mean corpuscular hemoglobin (MCH) determinationOrdered By: Ahsan Javier on 08-28-2024 MCH (RBC) [Entitic mass] 28.7 pg 27.0-32.0 [facility] Mean corpuscular hemoglobin concentration (MCHC) determinationOrdered By: Ahsan Javier on 08-28-2024 MCHC (RBC) [Mass/Vol] 32.9 g/dL 32-36 [facility] Mean platelet volume determi nationOrdered By: Ahsan Javier on 08-28-2024 Platelet mean volume (Bld) [Entitic vol] 10.3 fL 6.2-12.0 [facility] Platelet countOrdered By: Ra debra Javier on 08-28-2024 Platelets (Bld) [#/Vol] 332 10*3/uL 150-450 [facility] Potassium measurement (mass/ volume)Ordered By: Ahsan Javier on 08-28-2024 Potassium (Unsp spec) [Mass/Vol] 3.9 mmol/L 3.3-5.1 [facility] RBC Auto (Bld) [#/Vol]Ordere d By: Ahsan Javier on 08-28-2024 RBC (Bld) [#/Vol] 4.64 10*6/uL 4.2-5.4 [facility] Screening total cholesterol/ high density lipoprotein (HDL) cholesterol ratioOrdered By: Ahsan Javier on 08-28-2024 Cholesterol.total/Choles terol in HDL [Mass ratio] 6.89 {ratio} [facility] Serum DNA double strand anti body assay (units/volume)Ordered By: Ahsan Javier on 08-28-2024 DNA double strand Ab Qn (S) [facility] Comment on above: Test not performed Serum Scl-70 antibody assay (units/volume)Ordered By: Ahsan Javier on 08-28-2024 SCL-70 extractable nuclear Ab Qn (S) [facility] Comment on above: Test not performed Serum creatinine measurement (mass/volume)Ordered By: Ahsan Javier on 08-28-2024 Creatinine [Mass/Vol] 0.71 mg/dL 0.70-1.20 [facility] Serum globulin measurementOr dered By: Ahsan Javier on 08-28-2024 Globulin (S) [Mass/Vol] 2.9 g/dL 2.2-4.2 [facility] Serum glucose measurement (m ass/volume)Ordered By: Ahsan Javier on 08-28-2024 Glucose [Mass/Vol] 96 mg/dL 70-99 [facility] Serum or plasma alanine ricks otransferase (ALT) measurementOrdered By: Ahsan Javier on 08-28-2024 ALT [Catalytic activity/Vol] 18 U/L <35 [facility] Serum or plasma albumin maria teresa urement (mass/volume)Ordered By: Ahsan Javier on 08-28-2024 Albumin [Mass/Vol] 4.5 g/dL 3.5-5.0 [facility] Serum or plasma albumin/glob ulin mass ratioOrdered By: Ahsan Javier 08-28-2024 Albumin/Globulin [Mass ratio] 1.6 {ratio} 0.9-2.4 [facility] Serum or plasma alkaline mendez sphatase measurementOrdered By: Ahsan Javier on 08-28-2024 ALP [Catalytic activity/Vol] 72 U/L 35-104 [facility] Serum or plasma calcitriol m easurement (mass/volume)Ordered By: Ahsan Javier on 08-28-2024 1,25-dihydroxyvitamin D3 [Mass/Vol] 41.9 pg/mL 24.8-81.5 [facility] Serum or plasma calcium maria teresa urement (mass/volume)Ordered By: Ahsan Javier on 07-02-2025 Calcium [Mass/Vol] 9.4 mg/dL 7.6-11.0 [facility] Serum or plasma cholesterol in HDL measurement (mass/volume)Ordered By: Ahsan Javier on 08-28-2024 Cholesterol in HDL [Mass/Vol] 37 mg/dL Low >40 [facility] Comment on above: National Cholesterol Education Program (NCEP) guidelines:<40 mg/dL: Low HDL-cholesterol (major risk factor for CHD)>= 60 mg/dL: High HDL-cholesterol (negative risk factor for CHD)HDL-cholesterol is affected by a number of factors, e.g. smoking, exercise, hormones, sex and age. Serum or plasma cholesterol measurement (mass/volume)Ordered By: Ahsan Javier on 08-28-2024 Cholesterol [Mass/Vol] 253 mg/dL High <201 [facility] Comment on above: Cholesterol level, D esirable <200 mg/dLBorderline high cholesterol 200-239 mg/dLHigh cholesterol >=240 mg/dLRecommendations of the NCEP Adult Treatment Panel for the following risk-cutoff thresholds for the [place] population. Serum or plasma urea nitroge n measurement (mass/volume)Ordered By: Ahsan Javier on 08-28-2024 Urea nitrogen [Mass/Vol] 10 mg/dL 4-19 [facility] Sodium levelOrdered By: Mar Javier on 08-28-2024 Sodium [Moles/Vol] 139 mmol/L 133-145 [facility] TSH DL <= 0.005 mIU/L QnOrde red By: Ahsan Javier on 08-28-2024 TSH Qn 3.510 uIU/mL 0.300-4.200 [facility] Thyroid Stim Hormone (TSH)on 08-28-2024 TSH 3.510 uIU/mL Normal 0.300-4.200 [facility] Comment on above: Performed By: #### L 100.0500, L101.9900, L503.0106, L500.4050, L3300.0960, L3100.5450, L501.9520, L500.4100 ####[facility] [id number] [place], [place], [id number] Total proteinOrdered By: Isael Javier on 08-28-2024 Protein [Mass/Vol] 7.4 g/dL 5.9-8.4 [facility] Triglycerides measurementOrd ered By: Ahsan Javier on 08-28-2024 Triglyceride [Mass/Vol] 265 mg/dL High <199 [facility] Comment on above: The drugs N-Acetylcy steine and Metamizole may falsely depress this assay. Normal range: <150 mg/dLBorderline High: 150-199 mg/dLHigh: 200-499 mg/dLVery High: >500 mg/dL Vitamin B12on 08-28-2024 Cobalamin (Vitamin B12) [Mass/Vol] 975 pg/mL High 180-914 [facility] Comment on above: Performed By: #### L 100.0500, L101.9900, L503.0106, L500.4050, L3300.0960, L3100.5450, L501.9520, L500.4100 ####[facility] [id number] [place], [place], [id number] Vitamin B12 ser/plasOrdered By: Ahsan Javier on 08-28-2024 Cobalamin (Vitamin B12) [Mass/Vol] 975 pg/mL High 180-914 [facility] White blood cell (WBC) count Ordered By: Ahsan Javier on 08-28-2024 WBC (Bld) [#/Vol] 7.7 10*3/uL 4.4-11.0 [facility] Neurology Visit Reporton Neurology Visit Report [facility] [address], [address] [place], [place] [address] OFFICE VISIT Date of Service: 08/27/24 MR#: [id number] Acct: [id number] Name: EMILY MCCLENDON MAIA Rep #: [id number] : 1970 Provider: Dr. Ahsan mace MD Age/Sex: 53/F [place] [facility] [place] Status: Signed HPI HPI Details: History: The patient is a 53-year-old right-handed woman with a past medical history of hypertension who presents for evaluation of a stroke. In July 2020 she had an acute left middle cerebral artery distribution ischemic stroke that manifested with aphasia, right-sided weakness affecting the arm and leg and impaired coordination bilaterally, and blurred vision. She also had some memory impairment and confusion. She was hospitalized and on evaluation was found to have an left internal carotid artery occlusion. She was diagnosed with moyamoya disease. She was treated with aspirin and clopidogrel. 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 She has had gradual improvement of her symptoms however she still continues to have residual mild and impaired proprioception. Prior to her stroke in July 2020 she had experienced intermittent episodes of left eye blurring of vision. She was then found to have right internal carotid artery stenosis and underwent right internal carotid artery stent placement in March 2022. Her procedures were done at the [facility] and her vascular surgeon is Dr. Denis. Clopidogrel was then discontinued for period of time however since the beginning of July 2024 she has had 3 episodes of right amaurosis fugax each lasting about 15 minutes manifesting with right eye vision loss or right eye visual distortion. Clopidogrel was resumed following her third episode of amaurosis fugax on 08/16/2024 and she has had no further episodes of amaurosis fugax. She denies having headaches, numbness, swallowing difficulty, dizziness, lightheadedness, or hearing loss. She takes hydrochlorothiazide for hypertension. She reports that in years past, following her stroke in 2020, she was evaluated with a cardiac ultrasound and 30-day cardiac event monitor and these were unremarkable (official reports are presently not available). A carotid ultrasound performed on 08/16/2024 (report viewed on the patient's cell phone) indicates that at least moderate right internal carotid artery stenosis was noted. The left internal carotid artery was occluded. She was previously seen by a stockroom associate and apparently was found to have an abnormal protein S or protein C (per the patient's report; official report is presently not available) however on evaluation at that time she apparently was not felt to have a hypercoagulable state. She is taking sertraline for depression; she states this has resolved and is no longer feeling depressed. Past Medical History: As above. There is no history of hyperlipidemia, diabetes mellitus, heart disease, lung disease, seizure, thyroid disease, cancer, renal disease, or sleep apnea. Social History: She quit smoking tobacco 5 years ago. She has a prior history of alcohol abuse; she quit consuming alcohol 9 years ago. There is no history of illicit drug use. She has a masters degree. Family History: The patient is adopted and does not know her family history. Review of Systems: As above. The patient has not had any recent fever, rash, weight change, chest pain, shortness of breath, gastrointestinal problems or urinary problems. She denies having depression or anxiety presently. Physical Exam: General: Well-developed, well-nourished female in no acute distress. Neuro: The patient is awake and alert and responds appropriately however her speech is intermittently hesitant and she exhibits occasional syllable substitutions; comprehension appears preserved Cranial nerves: PERRL, 3mm bilaterally; EOMI; visual romo are full; visual acuity is 20/25 bilaterally; marginal right ptosis otherwise face is symmetrical; tongue is midline; there are no deficits to pinprick; no afferent pupillary defect is noted Cerebellar system: No nystagmus or dysmetria Deep tendon reflexes: +2 at the knees, ankles, biceps bilaterally, and brachioradialis bilaterally and absent at the triceps bilaterally; plantar responses are downward bilaterally Motor: Strength 5/5 in the biceps bilaterally, abductor pollicis brevis muscles bilaterally, first dorsal interosseous muscles bilaterally, triceps bilaterally, deltoid bilaterally, iliopsoas bilaterally, quadriceps bilaterally and foot dorsiflexors bilaterally; no drift Sensory: Decreased pinprick is noted in the right foot; there are no deficits to pinprick in the left foot or hands; there are no deficits to vibration in the feet; there are no deficits to soft touch in the feet Gait: Mildly slow HEENT: Normocephalic; atraumatic; (more content not included)... Normal [facility] Calculated very low density lipoprotein (VLDL) cholesterol measurementOrdered By: James Arteaga on 07-03-2024 Calculated very low density lipoprotein (VLDL) cholesterol measurement 40 mg/dL 5-40 [facility] LDL calc ser/plasOrdered By: James Arteaga on 07-03-2024 Cholesterol in LDL [Mass/Vol] 106 mg/dL [facility] Comment on above: Nzzehxufyn=566-939 m g/dL & Higher Crxp=204 mg/dL or greater Lipid Profileon 07-03-2024 CHOL:HDL 5.28 Normal [facility] Comment on above: Order Comment: Order Date: 05/09/24 Order Info: [id number] - LIPID Performed By: #### L 500.4100 #### [facility] [address] [place], [address] Cholesterol [Mass/Vol] 181 mg/dL Normal <=200 [facility] Comment on above: Order Comment: Order Date: 05/09/24 Order Info: [id number] - LIPID Result Comment: Chol esterol level, Desirable <200 mg/dL Borderline high cholesterol 200-239 mg/dL High cholesterol >=240 mg/dL Recommendations of the NCEP Adult Treatment Panel for the following risk-cutoff thresholds for the [place] population. Performed By: #### L 500.4100 #### [facility] [address] [place], [address] Cholesterol in HDL [Mass/Vol] 34 mg/dL Low [facility] Comment on above: Order Comment: Order Date: 05/09/24 Order Info: [id number] - LIPID Result Comment: Bertha onal Cholesterol Education Program (NCEP) guidelines: <40 mg/dL: Low HDL-cholesterol (major risk factor for CHD) >= 60 mg/dL: High HDL-cholesterol (negative risk factor for CHD) HDL-cholesterol is affected by a number of factors, e.g. smoking, exercise, hormones, sex and age. Performed By: #### L 500.4100 #### [facility] [address] [place], [address] Cholesterol in LDL [Mass/Vol] 106 mg/dL Normal [facility] Comment on above: Order Comment: Order Date: 05/09/24 Order Info: [id number] - LIPID Result Comment: Bord qdgdil=630-218 mg/dL Higher Myvv=473 mg/dL or greater Performed By: #### L 500.4100 #### [facility] [address] [place], [address] Cholesterol in VLDL [Mass/Vol] 40 mg/dL Normal 5-40 [facility] Comment on above: Order Comment: Order Date: 05/09/24 Order Info: [id number] - LIPID Performed By: #### L 500.4100 #### [facility] [address] [place], [place], [id number] Triglyceride [Mass/Vol] 202 mg/dL High [facility] Comment on above: Order Comment: Order Date: 05/09/24 Order Info: [id number] - LIPID Result Comment: The drugs N-Acetylcysteine and Metamizole may falsely depress this assay. Normal range: <150 mg/dL Borderline High: 150-199 mg/dL High: 200-499 mg/dL Very High: >500 mg/dL Performed By: #### L 500.4100 #### [facility] [address] [place], [place], [id number] Screening total cholesterol/ high density lipoprotein (HDL) cholesterol ratioOrdered By: James Arteaga on 07-03-2024 Cholesterol.total/Choles terol in HDL [Mass ratio] 5.28 {ratio} [facility] Serum or plasma cholesterol in HDL measurement (mass/volume)Ordered By: James Arteaga on 07-03-2024 Cholesterol in HDL [Mass/Vol] 34 mg/dL Low >40 [facility] Comment on above: National Cholesterol Education Program (NCEP) guidelines:<40 mg/dL: Low HDL-cholesterol (major risk factor for CHD)>= 60 mg/dL: High HDL-cholesterol (negative risk factor for CHD)HDL-cholesterol is affected by a number of factors, e.g. smoking, exercise, hormones, sex and age. Serum or plasma cholesterol measurement (mass/volume)Ordered By: James Arteaga on 07-03-2024 Cholesterol [Mass/Vol] 181 mg/dL <201 [facility] Comment on above: Cholesterol level, D esirable <200 mg/dLBorderline high cholesterol 200-239 mg/dLHigh cholesterol >=240 mg/dLRecommendations of the NCEP Adult Treatment Panel for the following risk-cutoff thresholds for the [place] population. Triglycerides measurementOrd ered By: James Arteaga on 07-03-2024 Triglyceride [Mass/Vol] 202 mg/dL High <199 [facility] Comment on above: The drugs N-Acetylcy steine and Metamizole may falsely depress this assay. Normal range: <150 mg/dLBorderline High: 150-199 mg/dLHigh: 200-499 mg/dLVery High: >500 mg/dL Brain W/WO Contraston 2024 Brain W/WO Contrast [facility] [address] [place], [place] [address] Brain W/WO Contrast MR#: [id number] Acct: [id number] Name: EMILY MCCLENDON MAIA Rep #: [id number] : 1970 F 53 From: Inder Small PCP: Dr. James Arteaga MD Status: REG CLI Study: Brain W/WO Contrast Date of Exam: 06/18/24 Exam# [id number] Ordering Dr: DAVID HILLIARD PROCEDURE: BRAIN W/WO CONTRAST 06/18/2024 REASON FOR EXAM: OCCLUSION OF LT ICA,STENOSIS TECHNIQUE: Brain MRI without and with intravenous contrast with additional dedicated imaging of the IACs. Multiplanar and multisequence images were obtained. CONTRAST: 15 mL of intravenous Clariscan was administered. COMPARISON: None FINDINGS: No diffusion restriction to suggest acute/subacute ischemia. No evidence of acute intracranial hemorrhage, midline shift or mass effect. A couple of small areas of cortical encephalomalacia within the left frontal and frontoparietal lobe consistent with chronic insults. No other parenchymal signal abnormalities. No hydrocephalus. Cerebral volume is age-appropriate. No pathologic enhancement. Loss of the distal left ICA flow void consistent with history of left carotid occlusion. Globes are intact. Paranasal sinuses and mastoid air cells are relatively clear. MRI/Brain W/WO Contrast IMPRESSION: 1. No acute intracranial abnormality or pathologic enhancement. 2. Small areas of cortical encephalomalacia in the left cerebrum as above consistent with old insults. 3. Occlusion of the distal left ICA. Reading Location: [facility] CC: Dr. James Arteaga MD; DAVID HILLIARD Upholstery Repairer: Signed Normal [facility] MRA Head ONLY without Contra ston 06-18-2024 MRA Head ONLY without Contrast [facility] [address] [place], [place] [address] MRA Head ONLY without Contrast MR#: [id number] Acct: [id number] Name: EMILY MCCLENDON MAIA Rep #: [id number] : 1970 F 53 From: Inder Small PCP: Dr. James Arteaga MD Status: REG CLI Study: MRA Head ONLY without Contrast Date of Exam: 0 06/18/24 Exam# [id number] Ordering Dr: DAVID HILLIARD PROCEDURE: MRA HEAD ONLY WITHOUT CONTRAST 06/18/2024 REASON FOR EXAM: L INTERNAL CAROTID ATRERY OCCULSION, R STENOSIS COMPARISON: None TECHNIQUE: 3D Time of Flight MRA of the head. Multiplanar multisequential imaging was performed without IV contrast administration. FINDINGS: Non-opacification of the distal left internal carotid artery including its cervical, petrous, cavernous and clinoid segments with reconstitution at the terminus. Distal vertebral arteries are without significant stenosis. Visualized cerebellar arteries are without occlusion. Basilar artery is without significant stenosis. Posterior cerebral arteries are without significant stenosis. Middle cerebral arteries are without significant stenosis. Anterior cerebral arteries are without significant stenosis. No sizable aneurysm. MRI/MRA Head ONLY without Contrast IMPRESSION: 1. Occlusion of the distal left ICA as above. 2. No high-grade stenosis, occlusion or sizable aneurysm involving the [id number]-[id number]. Reading Location: [facility] CC: Dr. James Arteaga MD; DAVID HILLIARD Upholstery Repairer: Signed Normal [facility] MRA Neck without Contraston 06-18-2024 MRA Neck without Contrast [facility] [address] [place] [address] MRA Neck without Contrast MR#: [id number] Acct: [id number] Name: EMILY MCCLENDON MAIA Rep #: [id number] : 1970 F 53 From: Willian Salinas MD PCP: Dr. James Arteaga MD Status: REG CLI Study: MRA Neck without Contrast Date of Exam: Exam# [id number] Ordering Dr: DAVID HILLIARD PROCEDURE: MRA NECK WITHOUT CONTRAST 06/18/2024 REASON FOR EXAM: L INTERNAL CAROTID ATRERY OCCULSION, R STENOSIS, TECHNIQUE: Neck MRA without contrast using 2D and 3D Time of Flight technique. FINDINGS: Flow: 2D Time of Flight images demonstrate antegrade carotid and vertebral artery flow. Carotids: No evidence of significant stenosis on time of flight imaging. Limited noncontrast exam. Right ICA stenosis (NASCET): Occluded proximally with reconstitution in the mid cervical ICA. % Left ICA stenosis (NASCET): Occluded % Vertebrals: Codominant without evidence of high grade stenosis. Arch: MRI/MRA Neck without Contrast IMPRESSION: Occluded internal carotid arteries bilaterally. Patent vertebral arteries bilaterally. Reading Location: [facility] CC: Dr. James Arteaga MD; DAVID HILLIARD Upholstery Repairer: Signed Normal [facility] Anion gap in Serum or Plasma Ordered By: James Arteaga on 06-17-2024 Anion gap [Moles/Vol] 11 mmol/L 5-15 [facility] BUN/creatinine ratioOrdered By: James Arteaga on 06-17-2024 Urea nitrogen/Creatinine [Mass ratio] 18.1 mg/mg 10-20 [facility] Bilirubin, totalOrdered By: James Arteaga on 06-17-2024 Bilirubin [Mass/Vol] 0.26 mg/dL 0.00-1.30 [facility] Calculated very low density lipoprotein (VLDL) cholesterol measurementOrdered By: James Arteaga on 06-17-2024 Calculated very low density lipoprotein (VLDL) cholesterol measurement 38 mg/dL 5-40 [facility] VLDL Cholesterol 38 mg/dL 5-40 [facility] Carbon dioxide, total [Moles /volume] in Central venous bloodOrdered By: James Arteaga on 06-17-2024 CO2 [Moles/Vol] 24.6 mmol/L 21.0-32.0 [facility] Chloride assayOrdered By: Mejia Arteaga on 06-17-2024 Chloride [Moles/Vol] 103 mmol/L 98-108 [facility] Comprehensive Metabolic Prof ilon 04-21-2025 Albumin [Mass/Vol] 4.2 g/dL Normal 3.5-5.0 [facility] Comment on above: Order Comment: Order Date: 05/09/24 Order Info: [id number] - CMP Order Info: [id number] - LIPID Performed By: #### L 500.4050 #### [facility] [address] [place], [address] Albumin/Globulin [Mass ratio] 1.6 {ratio} Normal 0.9-2.4 [facility] Comment on above: Order Comment: Order Date: 05/09/24 Order Info: [id number] - CMP Order Info: [id number] - LIPID Performed By: #### L 500.4050 #### [facility] [address] [place], [address] ALK PHOS 68 U/L Normal 35-104 [facility] Comment on above: Order Comment: Order Date: 05/09/24 Order Info: [id number] - CMP Order Info: [id number] - LIPID Performed By: #### L 500.4050 #### [facility] [address] [place], [address] ALT [Catalytic activity/Vol] 20 U/L Normal <=34 [facility] Comment on above: Order Comment: Order Date: 05/09/24 Order Info: [id number] - CMP Order Info: [id number] - LIPID Performed By: #### L 500.4050 #### [facility] [address] [place], [address] AST [Catalytic activity/Vol] 20 U/L Normal <=31 [facility] Comment on above: Order Comment: Order Date: 05/09/24 Order Info: [id number] - CMP Order Info: [id number] - LIPID Performed By: #### L 500.4050 #### [facility] [address] [place], [address] Bilirubin [Mass/Vol] 0.26 mg/dL Normal 0.00-1.30 [facility] Comment on above: Order Comment: Order Date: 05/09/24 Order Info: [id number] - CMP Order Info: [id number] - LIPID Performed By: #### L 500.4050 #### [facility] [address] [place], [address] BUN/CRE 18.1 RATIO Normal 10-20 [facility] Comment on above: Order Comment: Order Date: 05/09/24 Order Info: [id number] - CMP Order Info: [id number] - LIPID Performed By: #### L 500.4050 #### [facility] [address] [place], [address] Calcium [Mass/Vol] 9.2 mg/dL Normal 7.6-11.0 [facility] Comment on above: Order Comment: Order Date: 05/09/24 Order Info: [id number] - CMP Order Info: [id number] - LIPID Performed By: #### L 500.4050 #### [facility] [address] [place], [address] Chloride [Moles/Vol] 103 mmol/L Normal 98-108 [facility] Comment on above: Order Comment: Order Date: 05/09/24 Order Info: [id number] - CMP Order Info: [id number] - LIPID Performed By: #### L 500.4050 #### [facility] [address] [place], [address] CO2 [Moles/Vol] 24.6 mmol/L Normal 21.0-32.0 [facility] Comment on above: Order Comment: Order Date: 05/09/24 Order Info: [id number] - CMP Order Info: [id number] - LIPID Performed By: #### L 500.4050 #### [facility] [address] [place], [address] Creatinine [Mass/Vol] 0.71 mg/dL Normal 0.70-1.20 [facility] Comment on above: Order Comment: Order Date: 05/09/24 Order Info: [id number] - CMP Order Info: [id number] - LIPID Performed By: #### L 500.4050 #### [facility] [address] [place], [address] GAP 11 Normal 5-15 [facility] Comment on above: Order Comment: Order Date: 05/09/24 Order Info: [id number]- - CMP Order Info: [id number] - LIPID Performed By: #### L 500.4050 #### [facility] [address] [place], [address] GFR/1.73 sq M.predicted among non-blacks MDRD (S/P/Bld) [Vol rate/Area] 103 mL/min/{1.73_m2} Normal >60 [facility] Comment on above: Order Comment: Order Date: 05/09/24 Order Info: [id number] - CMP Order Info: [id number] - LIPID Result Comment: mL/m in/1.73m2 CKD-EPI Creatinine Equation (2020) Performed By: #### L 500.4050 #### [facility] [address] [place], [address] Globulin (S) [Mass/Vol] 2.5 g/dL Normal 2.2-4.2 [facility] Comment on above: Order Comment: Order Date: 05/09/24 Order Info: [id number] - CMP Order Info: [id number] - LIPID Performed By: #### L 500.4050 #### [facility] [address] [place], [address] Glucose [Mass/Vol] 96 mg/dL Normal 70-99 [facility] Comment on above: Order Comment: Order Date: 05/09/24 Order Info: [id number] - CMP Order Info: [id number] - LIPID Performed By: #### L 500.4050 #### [facility] [address] [place], [address] Potassium [Moles/Vol] 3.9 mmol/L Normal 3.3-5.1 [facility] Comment on above: Order Comment: Order Date: 05/09/24 Order Info: [id number] - CMP Order Info: [id number] - LIPID Performed By: #### L 500.4050 #### [facility] [address] [place], [address] Sodium [Moles/Vol] 139 mmol/L Normal 133-145 [facility] Comment on above: Order Comment: Order Date: 05/09/24 Order Info: [id number] - CMP Order Info: [id number] - LIPID Performed By: #### L 500.4050 #### [facility] [address] [place], [address] T PROT 6.7 g/dL Normal 5.9-8.4 [facility] Comment on above: Order Comment: Order Date: 05/09/24 Order Info: [id number] - CMP Order Info: [id number] - LIPID Performed By: #### L 500.4050 #### [facility] [address] [place], [address] Urea nitrogen [Mass/Vol] 13 mg/dL Normal 4-19 [facility] Comment on above: Order Comment: Order Date: 05/09/24 Order Info: [id number] - CMP Order Info: [id number] - LIPID Performed By: #### L 500.4050 #### [facility] [address] [place], [address] GFR/1.73 sq M.predicted cindi g non-blacks MDRD (S/P/Bld) [Vol rate/Area]Ordered By: James Arteaga on 06-17-2024 Estimated GFR (MDRD) Non-Af Amer 103 >60 [facility] Comment on above: mL/min/1.73m2 CKD-EP I Creatinine Equation (2020) Glomerular filtration rate ( GFR) estimation/1.73 sq m using serum, plasma, or whole bOrdered By: James Arteaga on 06-17-2024 GFR/1.73 sq M.predicted among non-blacks MDRD (S/P/Bld) [Vol rate/Area] 103 mL/min/{1.73_m2} >60 [facility] Comment on above: mL/min/1.73m2 CKD-EP I Creatinine Equation (2020) LDL calc ser/plasOrdered By: James Arteaga on 06-17-2024 Cholesterol in LDL [Mass/Vol] 106 mg/dL [facility] Comment on above: Gqofttivxc=045-537 m g/dL & Higher Bnht=807 mg/dL or greater LDL Cholesterol, Calculated 106 mg/dL [facility] Comment on above: Prrxvjlhtq=582-371 m g/dL & Higher Ocxy=581 mg/dL or greater Laboratory - Chemistry and C hemistry - challengeOrdered By: James Arteaga on 06-17-2024 AST [Catalytic activity/Vol] 20 U/L <32 [facility] Lipid Profileon 06-17-2024 CHOL:HDL 5.27 Normal [facility] Comment on above: Order Comment: Order Date: 05/09/24Order Info: [id number] - CMPOrder Info: [id number] - LIPID Performed By: #### L 500.4100 ####[facility] [address] [facility] [place], [place], [id number] Cholesterol [Mass/Vol] 178 mg/dL Normal <=200 [facility] Comment on above: Order Comment: Order Date: 05/09/24Order Info: [id number] - CMPOrder Info: [id number] - LIPID Result Comment: Chol esterol level, Desirable <200 mg/dL Borderline high cholesterol 200-239 mg/dL High cholesterol >=240 mg/dL Recommendations of the NCEP Adult Treatment Panel for the following risk-cutoff thresholds for the [place] population. Performed By: #### L 500.4100 ####[facility] [address] [facility] [place], [place], [id number] Cholesterol in HDL [Mass/Vol] 34 mg/dL Low [facility] Comment on above: Order Comment: Order Date: 05/09/24Order Info: [id number] - CMPOrder Info: [id number] - LIPID Result Comment: Bertha onal Cholesterol Education Program (NCEP) guidelines: <40 mg/dL: Low HDL-cholesterol (major risk factor for CHD) >= 60 mg/dL: High HDL-cholesterol (negative risk factor for CHD) HDL-cholesterol is affected by a number of factors, e.g. smoking, exercise, hormones, sex and age. Performed By: #### L 500.4100 ####[facility] [address] [place], [address] Cholesterol in LDL [Mass/Vol] 106 mg/dL Normal [facility] Comment on above: Order Comment: Order Date: 05/09/24Order Info: [id number] - CMPOrder Info: [id number] - LIPID Result Comment: Bord edeygb=319-435 mg/dL Higher Siul=031 mg/dL or greater Performed By: #### L 500.4100 ####[facility] [address] [place], [address] Cholesterol in VLDL [Mass/Vol] 38 mg/dL Normal 5-40 [facility] Comment on above: Order Comment: Order Date: 05/09/24Order Info: [id number] - CMPOrder Info: [id number] - LIPID Performed By: #### L 500.4100 ####[facility] [address] [place], [address] Triglyceride [Mass/Vol] 192 mg/dL Normal [facility] Comment on above: Order Comment: Order Date: 05/09/24Order Info: [id number] - CMPOrder Info: [id number] - LIPID Result Comment: The drugs N-Acetylcysteine and Metamizole may falsely depress this assay. Normal range: <150 mg/dL Borderline High: 150-199 mg/dL High: 200-499 mg/dL Very High: >500 mg/dL Performed By: #### L 500.4100 ####[facility] [address] [place], [address] Potassium (Unsp spec) [Mass/ Vol]Ordered By: James Arteaga on 06-17-2024 Potassium [Moles/Vol] 3.9 mmol/L 3.3-5.1 [facility] Potassium measurement (mass/ volume)Ordered By: James Arteaga on 06-17-2024 Potassium (Unsp spec) [Mass/Vol] 3.9 mmol/L 3.3-5.1 [facility] Screening total cholesterol/ high density lipoprotein (HDL) cholesterol ratioOrdered By: James Arteaga on 06-17-2024 Cholesterol.total/Choles terol in HDL [Mass ratio] 5.27 {ratio} [facility] Serum creatinine measurement (mass/volume)Ordered By: James Arteaga on 06-17-2024 Creatinine [Mass/Vol] 0.71 mg/dL 0.70-1.20 [facility] Serum globulin measurementOr dered By: James Arteaga on 06-17-2024 Globulin (S) [Mass/Vol] 2.5 g/dL 2.2-4.2 [facility] Serum glucose measurement (m ass/volume)Ordered By: James Arteaga on 06-17-2024 Glucose [Mass/Vol] 96 mg/dL 70-99 [facility] Serum or plasma alanine ricks otransferase (ALT) measurementOrdered By: James Arteaga on 06-17-2024 ALT [Catalytic activity/Vol] 20 U/L <35 [facility] Serum or plasma albumin maria teresa urement (mass/volume)Ordered By: James Arteaga on 06-17-2024 Albumin [Mass/Vol] 4.2 g/dL 3.5-5.0 [facility] Serum or plasma albumin/glob ulin mass ratioOrdered By: James Arteaga on 06-17-2024 Albumin/Globulin [Mass ratio] 1.6 {ratio} 0.9-2.4 [facility] Serum or plasma alkaline mendez sphatase measurementOrdered By: James Arteaga on 06-17-2024 ALP [Catalytic activity/Vol] 68 U/L 35-104 [facility] Serum or plasma calcium maria teresa urement (mass/volume)Ordered By: James Arteaga on 06-17-2024 Calcium [Mass/Vol] 9.2 mg/dL 7.6-11.0 [facility] Serum or plasma cholesterol in HDL measurement (mass/volume)Ordered By: James Arteaga on 06-17-2024 Cholesterol in HDL [Mass/Vol] 34 mg/dL Low >40 [facility] Comment on above: National Cholesterol Education Program (NCEP) guidelines:<40 mg/dL: Low HDL-cholesterol (major risk factor for CHD)>= 60 mg/dL: High HDL-cholesterol (negative risk factor for CHD)HDL-cholesterol is affected by a number of factors, e.g. smoking, exercise, hormones, sex and age. Serum or plasma cholesterol measurement (mass/volume)Ordered By: James Arteaga on 06-17-2024 Cholesterol [Mass/Vol] 178 mg/dL <201 [facility] Comment on above: Cholesterol level, D esirable <200 mg/dLBorderline high cholesterol 200-239 mg/dLHigh cholesterol >=240 mg/dLRecommendations of the NCEP Adult Treatment Panel for the following risk-cutoff thresholds for the [place] population. Serum or plasma urea nitroge n measurement (mass/volume)Ordered By: James Arteaga on 06-17-2024 Urea nitrogen [Mass/Vol] 13 mg/dL - [facility] Sodium levelOrdered By: James Arteaga on 06-17-2024 Sodium [Moles/Vol] 139 mmol/L 133-145 [facility] Total proteinOrdered By: Ayla Arteaga on 06-17-2024 Protein [Mass/Vol] 6.7 g/dL 5.9-8.4 [facility] Triglycerides measurementOrd ered By: James Arteaga on 06-17-2024 Triglyceride [Mass/Vol] 192 mg/dL <199 [facility] Comment on above: The drugs N-Acetylcy steine and Metamizole may falsely depress this assay. Normal range: <150 mg/dLBorderline High: 150-199 mg/dLHigh: 200-499 mg/dLVery High: >500 mg/dL Absolute lymphocyte countOrd ered By: Ruy Davis on 06-03-2024 Lymphocytes Auto (Unsp spec) [#/Vol] 4.19 10*3/uL 0.83-4.51 [facility] Absolute neutrophil countOrd ered By: Ruy Davis on 06-03-2024 Neutrophils (Bld) [#/Vol] 4.1 10*3/uL 2.0-7.7 [facility] Automated lymphocyte count a s percentage of total leukocytesOrdered By: Ruy Davis on 06-03-2024 Lymphocytes/100 WBC Auto (Unsp spec) 45.4 % High 19-41 [facility] Basophil percentageOrdered B y: Ruy Davis on 06-03-2024 Basophils/100 WBC (Bld) 0.4 % 0-1 [facility] CBC W/Diff, Automatedon Absolute Lymph 4.19 X10 3/uL Normal 0.83-4.51 [facility] Comment on above: Performed By: #### L 101.9900, L501.6710, L100.0100 #### [facility] [address] [place], [address] Absolute Neut 4.1 X10 3/uL Normal 2.0-7.7 [facility] Comment on above: Performed By: #### L 101.9900, L501.6710, L100.0100 #### [facility] [address] [place], [address] Basophils/100 WBC (Bld) 0.4 % Normal 0-1 [facility] Comment on above: Performed By: #### L 101.9900, L501.6710, L100.0100 #### [facility] [address] [place], [address] Eosinophils/100 WBC (Bld) 1.0 % Normal 0-5 [facility] Comment on above: Performed By: #### L 101.9900, L501.6710, L100.0100 #### [facility] [address] [place], [address] Erythrocyte distribution width (RBC) [Ratio] 14.0 % Normal 11.6-14.6 [facility] Comment on above: Performed By: #### L 101.9900, L501.6710, L100.0100 #### [facility] [address] [place], [address] Hematocrit (Bld) [Volume fraction] 39.2 % Normal 37-47 [facility] Comment on above: Performed By: #### L 101.9900, L501.6710, L100.0100 #### [facility] [address] [place], [address] Hemoglobin (Bld) [Mass/Vol] 12.9 g/dL Normal 12.0-15.0 [facility] Comment on above: Performed By: #### L 101.9900, L501.6710, L100.0100 #### [facility] [address] [place], [address] IG% 0.300 Normal 0.0-0.9 [facility] Comment on above: Result Comment: IG% - Immature Granulocytes (promyelocytes, myelocytes and metamyelocytes) > 1% indicates that a LEFT SHIFT is Present. Performed By: #### L 101.9900, L501.6710, L100.0100 #### [facility] [address] [place], [address] Lymphocytes/100 WBC (Bld) 45.4 % High 19-41 [facility] Comment on above: Performed By: #### L 101.9900, L501.6710, L100.0100 #### [facility] [address] [place], [address] MCH (RBC) [Entitic mass] 28.7 pg Normal 27.0-32.0 [facility] Comment on above: Performed By: #### L 101.9900, L501.6710, L100.0100 #### [facility] [address] [place], [address] MCHC (RBC) [Mass/Vol] 32.9 g/dL Normal 32-36 [facility] Comment on above: Performed By: #### L 101.9900, L501.6710, L100.0100 #### [facility] [address] [place], [address] MCV (RBC) [Entitic vol] 87.1 fL Normal 81-99 [facility] Comment on above: Performed By: #### L 101.9900, L501.6710, L100.0100 #### [facility] [address] [place], [address] Monocytes/100 WBC (Bld) 8.0 % Normal 0-10 [facility] Comment on above: Performed By: #### L 101.9900, L501.6710, L100.0100 #### [facility] [address] [place], [address] Neutrophils/100 WBC (Bld) 44.9 % Low 47-70 [facility] Comment on above: Performed By: #### L 101.9900, L501.6710, L100.0100 #### [facility] [address] [place], [address] Nucleated RBC (Bld) [#/Vol] 0 10*3/uL Normal 0-5 [facility] Comment on above: Performed By: #### L 101.9900, L501.6710, L100.0100 #### [facility] [address] [place], [address] Platelet mean volume (Bld) [Entitic vol] 9.7 fL Normal 6.2-12.0 [facility] Comment on above: Performed By: #### L 101.9900, L501.6710, L100.0100 #### [facility] [address] [place], [address] Platelets (Bld) [#/Vol] 341 10*3/uL Normal 150-450 [facility] Comment on above: Performed By: #### L 101.9900, L501.6710, L100.0100 #### [facility] [address] [place], [address] RBC (Bld) [#/Vol] 4.50 10*6/uL Normal 4.2-5.4 [facility] Comment on above: Performed By: #### L 101.9900, L501.6710, L100.0100 #### [facility] [address] [place], [address] RDW SD 44.7 fl High 35.1-43.9 [facility] Comment on above: Performed By: #### L 101.9900, L501.6710, L100.0100 #### [facility] [address] [place], [address] WBC (Bld) [#/Vol] 9.2 10*3/uL Normal 4.4-11.0 [facility] Comment on above: Performed By: #### L 101.9900, L501.6710, L100.0100 #### [facility] [address] [place], [address] CRPon 06-03-2024 C-REACTIVE PROT 5.81 mg/L High 0.0-3.0 [facility] Comment on above: Performed By: #### L 101.9900, L501.6710, L100.0100 ####[facility] [address] [place], [address] CRP [Mass/Vol]Ordered By: Omar Davis on 06-03-2024 C-Reactive Protein Extended Range 5.81 mg/L High 0.0-3.0 [facility] Eosinophil percentageOrdered By: Ruy Davis on 06-03-2024 Eosinophils/100 WBC (Bld) 1.0 % 0-5 [facility] Erythrocyte Sed Rateon 06-03 SED RATE 16 mm/hr Normal 0-30 [facility] Comment on above: Performed By: #### L 101.9900, L501.6710, L100.0100 ####[facility] [address] [place], [address] Erythrocyte distribution wid th (RBC) [Ratio]Ordered By: Ruy Davis on 06-03-2024 Erythrocyte distribution width (RBC) [Entitic vol] 44.7 fL High 35.1-43.9 [facility] Erythrocyte distribution wid th ratioOrdered By: Ruy Davis on 06-03-2024 Erythrocyte distribution width (RBC) [Ratio] 14.0 % 11.6-14.6 [facility] Erythrocyte distribution wid th standard deviationOrdered By: Ruy Davis on 06-03-2024 Erythrocyte distribution width (RBC) [Ratio] 44.7 fl High 35.1-43.9 [facility] Erythrocyte sedimentation ra teOrdered By: Ruy Davis on 06-03-2024 ESR (Bld) [Velocity] 16 mm/h 0-30 [facility] Hematocrit Auto (Bld) [Volum e fraction]Ordered By: Ruy Davis on 06-03-2024 Hematocrit (Bld) [Volume fraction] 39.2 % 37-47 [facility] Hemoglobin measurementOrdere d By: Ruy Davis on 06-03-2024 Hemoglobin (Bld) [Mass/Vol] 12.9 g/dL 12.0-15.0 [facility] Immature granulocytes/100 WB C Auto (Bld)Ordered By: Ruy Davis on 06-03-2024 Immature granulocytes/100 WBC (Bld) 0.300 % 0.0-0.9 [facility] Comment on above: IG% - Immature Granu locytes (promyelocytes, myelocytes and metamyelocytes) > 1% indicates that a LEFT SHIFT is Present. Lymphocytes Auto (Unsp spec) [#/Vol]Ordered By: Ruy Davis on 06-03-2024 Lymphocytes (Bld) [#/Vol] 4.19 10*3/uL 0.83-4.51 [facility] Lymphocytes/100 WBC Auto (Un sp spec)Ordered By: Ruy Davis on 06-03-2024 Lymphocytes/100 WBC (Bld) 45.4 % High 19-41 [facility] MCV (mean corpuscular volume ) determinationOrdered By: Ruy Davis on 06-03-2024 MCV (RBC) [Entitic vol] 87.1 fL 81-99 [facility] Mean corpuscular hemoglobin (MCH) determinationOrdered By: Ruy Davis on 06-03-2024 MCH (RBC) [Entitic mass] 28.7 pg 27.0-32.0 [facility] Mean corpuscular hemoglobin concentration (MCHC) determinationOrdered By: Ruy Davis on 06-03-2024 MCHC (RBC) [Mass/Vol] 32.9 g/dL 32-36 [facility] Mean platelet volume determi nationOrdered By: Ruy Davis on 06-03-2024 Platelet mean volume (Bld) [Entitic vol] 9.7 fL 6.2-12.0 [facility] Monocyte percentageOrdered B y: Ruy Davis on 06-03-2024 Monocytes/100 WBC (Bld) 8.0 % 0-10 [facility] Neutrophil percentageOrdered By: Ruy Davis on 06-03-2024 Neutrophils/100 WBC (Bld) 44.9 % Low 47-70 [facility] Nucleated red blood cell per centageOrdered By: Ruy Davis on 06-03-2024 Nucleated RBC/100 WBC (Bld) [Ratio] 0 % 0-5 [facility] Platelet countOrdered By: Omar Davis on 06-03-2024 Platelets (Bld) [#/Vol] 341 10*3/uL 150-450 [facility] RBC Auto (Bld) [#/Vol]Ordere d By: Ruy Davis on 06-03-2024 RBC (Bld) [#/Vol] 4.50 10*6/uL 4.2-5.4 [facility] Serum or plasma C reactive p rotein measurement (mass/volume)Ordered By: Ruy Davis on 06-03-2024 CRP [Mass/Vol] 5.81 mg/L High 0.0-3.0 [facility] White blood cell (WBC) count Ordered By: Ruy Davis on 06-03-2024 WBC (Bld) [#/Vol] 9.2 10*3/uL 4.4-11.0 [facility] Breast Limited Unilateralon 03-21-2024 Breast Limited Unilateral [facility] [address] [place] [address] Breast Limited Unilateral MR#: [id number] Acct: [id number] Name: EMILY MCCLENDON Rep #: [id number] : 1970 F 53 From: Burton napier MD PCP: Dr. James Arteaga MD Status: [facility] CL Study: Breast Limited Unilateral Date of Exam: Exam# [id number] Ordering Dr: Natalie Elizabeth DO [id number] STUDY: ULTRASOUND BREAST - LEFT REASON FOR EXAM: Female, 53 years old. Abnormal screening mammogram. TECHNIQUE: Axial and longitudinal images of the LEFT breast were performed with a high resolution ultrasound transducer. # OF IMAGES: 22 COMPARISON: Comparison is made with prior study dated March 19, 2024. FINDINGS: LEFT Breast: The upper outer quadrant of the left breast was examined with ultrasound. There is a 5 mm x 6 mm x 3 mm cyst at the 2:00 position of the breast at 8 cm from the nipple. US/Breast Limited Unilateral IMPRESSION: 5 mm x 6 mm x 3 mm cyst at the 2:00 position of the breast at 8 cm from the nipple. ASSESSMENT CATEGORY: BIRADS Category 2: Benign. A letter regarding these results will be sent to the patient by the facility within 30 days. Electronically Signed: Burton Davis MD at 12:48 EST , CC: Dr. James Arteaga MD; Dr. Natalie Elizabeth DO Upholstery Repairer: Signed Normal [facility] SCRN MAMM (CAD)W/JL BILATo n 03-19-2024 SCRN MAMM (CAD)W/JL BILAT [facility] [address] [place] [address] SCRN MAMM (CAD)W/JL BILAT MR#: [id number] Acct: [id number] Name: EMILY MCCLENDON Rep #: [id number] : 1970 F 53 From: Burton napier MD PCP: Dr. James Arteaga MD Status: [facility] Study: SCRN MAMM (CAD)W/JL BILAT Date of Exam: 02/28 03/23 Exam# [id number] Ordering Dr: Natalie Elizabeth DO [id number] MAMMOGRAPHY - BILATERAL SCREENING REASON FOR EXAM: Female, 53 years old. Routine annual screening examination. PERTINENT HISTORY: Non-contributory. TECHNIQUE: Digital bilateral breast jl (3D mammographic acquisition) in the CC and MLO projections. 2-D mediolateral oblique (MLO) and craniocaudad (CC) views of both breasts were obtained. CAD: Full Field Digital Mammography with Computer Added Detection was performed. COMPARISON: Comparison is made with prior study dated September 13, 2023 and February 22, 2022. FINDINGS: Breast Composition: The breasts are heterogeneously dense, which may obscure small masses. There is a 5.5 mm x 3 mm well-defined nodule in the upper lateral aspect of the left breast. Correlation with ultrasound recommended. Stable benign-appearing bilateral axillary lymph nodes. No other significant abnormalities are identified. BI/SCRN MAMM (CAD)W/JL BILAT IMPRESSION: 5.5 mm x 3 mm well-defined nodule in the upper lateral aspect of the left breast as described. Correlation with ultrasound is recommended. ASSESSMENT CATEGORY: BIRADS Category 0: Incomplete. Need additional imaging evaluation. A letter regarding these results will be sent to the patient by the facility within 30 days. Approximately 10% of breast cancers are not detected by mammography. A normal mammogram should not delay biopsy of a clinically suspicious abnormality. [id number] Electronically Signed: Burton Davis MD at 10:55 EST , CC: Dr. James Arteaga MD; Dr. Natalie Elizabeth DO Upholstery Repairer: Signed Normal [facility] PAP IG HPV APTIMA 16/18,45on 03-14-2024 ADEQ Comment Normal . [facility] Comment on above: Order Comment: Speci men Comment: [id number] Specimen Comment: Source.............Cervix Specimen Comment: No. of containers..01 ThinPrep Vial Result Comment: Sati sfactory for evaluation. Endocervical and/or squamous metaplastic cells (endocervical component) are present. Performed By: #### L 7400.0280 #### [facility] [address] [place], [place], [id number] COMM . Normal . [facility] Comment on above: Order Comment: Speci men Comment: [id number] Specimen Comment: Source.............Cervix Specimen Comment: No. of containers..01 ThinPrep Vial Performed By: #### L 7400.0280 #### [facility] [address] [place], [place], [address] COMMENT Comment Normal . [facility] Comment on above: Order Comment: Speci men Comment: [id number] Specimen Comment: Source.............Cervix Specimen Comment: No. of containers..01 ThinPrep Vial Result Comment: This liquid based ThinPrep(R) pap test was screened with the use of an image guided system. Performed By: #### L 7400.0280 #### [facility] [address] [facility] [place], [place], [address] DIAG Comment Normal . [facility] Comment on above: Order Comment: Speci men Comment: [id number] Specimen Comment: Source.............Cervix Specimen Comment: No. of containers..01 ThinPrep Vial Result Comment: NEGA TIVE FOR INTRAEPITHELIAL LESION OR MALIGNANCY. Performed By: #### L 7400.0280 #### [facility] [address] [place], [place], [address] HPV APTIMA, HR Negative Normal Negative [facility] Comment on above: Order Comment: Speci men Comment: [id number] Specimen Comment: Source.............Cervix Specimen Comment: No. of containers..01 ThinPrep Vial Result Comment: This nucleic acid amplification test detects fourteen high- risk HPV types (16,18,31,33,35,39,45,51,52,56,58,59,66,68) without differentiation. Performed By: #### L 7400.0280 #### [facility] [address] [place], [place], [address] HPV Tamica Rfx Comment Normal . [facility] Comment on above: Order Comment: Speci men Comment: [id number] Specimen Comment: Source.............Cervix Specimen Comment: No. of containers..01 ThinPrep Vial Result Comment: Crit errodger not met, HPV Genotype not performed. Performed at: [address] [id number] [employer] Applications Analyst: Noel Rodas PhD, Phone: [phone] Performed at: [address], [place] [id number] [employer] Applications Analyst: Debi Polanco MD, Phone: [phone] Performed at: =[address] [place], [place] [id number] [employer] Analyst: Debi Polanco MD, Phone: [phone] Performed By: #### L 7400.0280 #### [facility] [address] [place], [address] PAPSMR Comment Normal . [facility] Comment on above: Order Comment: Speci men Comment: [id number] Specimen Comment: Source.............Cervix Specimen Comment: No. of containers..01 ThinPrep Vial Result Comment: The Pap smear is a screening test designed to aid in the detection of premalignant and malignant conditions of the uterine cervix. It is not a diagnostic procedure and should not be used as the sole means of detecting cervical cancer. Both false-positive and false-negative reports do occur. Performed By: #### L 7400.0280 #### [facility] [address] [place], [address] PERFORM Comment Normal . [facility] Comment on above: Order Comment: Speci men Comment: [id number] Specimen Comment: Source.............Cervix Specimen Comment: No. of containers..01 ThinPrep Vial Result Comment: Imelda Gonzalez Rn Social Work (ASCP) Performed By: #### L 7400.0280 #### [facility] [address] [place], [address] Cervical or vaginal specimen microscopic examination by liquid based cytology (reportOrdered By: Natalie Chen on 03-11-2024 Cytology report Cyto stain.thin prep Doc (Cvx/Vag) Comment . [facility] Comment on above: Criteria not met, HP V Genotype not performed.Performed at: [address] [id number] Director: Noel Rodas PhD, Phone: [phone] at: [address] [id number] Director: Debi Polanco MD, Phone: [phone] at: [address] [id number] Director: Debi Polanco MD, Phone: [phone] Cervical or vagninal specime n microscopic examination by cytology stain (reported asOrdered By: Natalie Chen on 03-11-2024 Cytology report Cyto stain Doc (Cvx/Vag) Comment . [facility] Comment on above: The Pap smear is a s creening test designed to aid in thedetection of premalignant and malignant conditions of theuterine cervix. It is not a diagnostic procedure andshould not be used as the sole means of detecting cervicalcancer. Both false-positive and false-negative reports dooccur. Front Office Help Cyto stain Nom (C vx/Vag) [ID]Ordered By: Natalie Chen on 03-11-2024 Pap Smear Performed By Comment . [facility] Comment on above: Agustina Gonzalez, Cyto technologist (ASCP) Cytology report Cyto stain D oc (Cvx/Vag)Ordered By: Natalie Chen on 03-11-2024 Thin Prep Pap Smear Comment . [facility] Comment on above: The Pap smear is a s creening test designed to aid in thedetection of premalignant and malignant conditions of theuterine cervix. It is not a diagnostic procedure andshould not be used as the sole means of detecting cervicalcancer. Both false-positive and false-negative reports dooccur. Cytology report Cyto stain.t hin prep Doc (Cvx/Vag)Ordered By: Natalie Chen on 03-11-2024 HPV Genotype Special Info Comment . [facility] Comment on above: Criteria not met, HP V Genotype not performed.Performed at: [facility] [facility], [place] [id number] Director: Noel Rodas PhD, Phone: [phone] at: [address] [id number] Director: Debi Polanco MD, Phone: [phone] at: =[facility] [address] [place], [place] [id number] Director: Debi Polanco MD, Phone: [phone] Detection in cervical specim en of any of human papilloma virus (HPV) 16, 18, 31, 33,Ordered By: Natalie Chen on 03-11-2024 HPV 16+18+31+33+35+39+45+51+ 52+56+58+59+66+68 DNA Probe+sig amp Ql (Cvx) Negative Negative [facility] Comment on above: This nucleic acid am plification test detects fourteen high-risk HPV types (16,18,31,33,35,39,45,51,52,56,58,59,66,68)without differentiation. HPV 16+18+31+33+35+39+45+51+ 52+56+58+59+66+68 DNA Probe+sig amp Ql (Cvx)Ordered By: Natalie Chen on 03-11-2024 Human Papillomavirus High Risk Negative Negative [facility] Comment on above: This nucleic acid am plification test detects fourteen high-risk HPV types (16,18,31,33,35,39,45,51,52,56,58,59,66,68)without differentiation. Image-guided ThinPrep PapOrd ered By: Natalie Chen on 03-11-2024 Pap Smear Note Comment . [facility] Comment on above: This liquid based Th inPrep(R) pap test was screened withthe use of an image guided system. Image-guided liquid-based Pa pOrdered By: Natalie Chen on 03-11-2024 Pap Smear Diagnosis Comment . [facility] Comment on above: NEGATIVE FOR INTRAEP ITHELIAL LESION OR MALIGNANCY. Laboratory - CytologyOrdered By: Natalie Chen on 03-11-2024 Front Office Help Cyto stain Nom (Cvx/Vag) [ID] Comment . [facility] Comment on above: gAustina Gonzalez, Cyto technologist (ASCP) Laboratory - Miscellaneous t estsOrdered By: Natalie Chen on 03-11-2024 Service comment (Unsp spec) [Interp] . . [facility] No Panel InformationOrdered By: Natalie Chen on 03-11-2024 Pap Smear Specimen Adequacy Comment . [facility] Comment on above: Satisfactory for kasandra luation. Endocervical and/or squamous metaplasticcells (endocervical component) are present. Construction Flagger Office Visit Reporton 03-11-2024 Construction Flagger Office Visit Report [facility] [address], [address] [place] [address] OFFICE VISIT Date of Service: 03/11/24 MR#: [id number] Acct: [id number] Name: EMILY MCCLENDON MAIA Rep #: [id number] : 1970 Provider: Dr. Natalie Bautista, Age/Sex: 53/F Location[place] [facility] [place] Status: Signed Intake Vital Signs 03/08/23 14:31 03/11/24 08:19 Height 5 ft 4 in 5 ft 4 in Weight: 180 lb 2 oz BMI 30.9 BP 145/87 H Intake Visit Reasons: Annual ([employer]) Pipe Roller Required: No Is patient in pain?: No Allergies codeine Allergy (Mild, Verified 03/11/24 08:17) Vomiting Penicillins Allergy (Mild, Verified 03/11/24 08:17) Swelling Medications ???Medication ???Instructions ???Recorded ???Confirmed ???Type aspirin 81 mg tablet,delayed 81 mg PO DAILY 03/08/23 03/11/24 History release (Adult Aspirin Regimen) atorvastatin 40 mg tablet (Lipitor) 40 mg PO DAILY 03/08/23 03/11/24 History hydrochlorothiazide 12.5 mg capsule 12.5 mg PO DAILY 03/08/23 03/11/24 History multivitamin 1 tab PO DAILY 03/08/23 03/11/24 History sertraline 100 mg tablet (Zoloft) 100 mg PO DAILY 03/08/23 03/11/24 History fezolinetant 45 mg tablet (Veozah) 45 mg PO QDAY #30 tabs 03/11/24 03/11/24 Rx Post menopausal: No Patient : No : No [facility] Medical History History of left common carotid artery stent placement Depression Cerebral vascular accident Surgical History H/O brain surgery Social History (Updated 03/11/24 @ 08:23 by Jill Mendez) household members: spouse number of children: 1 current occupational status: unemployed Smoking Status: Never smoker alcohol intake: never substance use type: does not use what type of physical activity do you participate in: yoga frequency: 3-4 times per week seatbelt use: always do you feel safe at home: Yes additional social history: - [employer]- 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 Date Name GA/Weeks Outcome Route Bth Weight Gen Labor Lgth Anesthesia Del Locatn Provider FOB Unknown 2000 HPI Encounter for routine gynecological examination Details: EMILY MCCLENDON is a 53 year old who presents for annual exam. She has gone through a lot in the last 5 years. 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 now with new partner and re-. has hot flashes and weight gain. no menses x 1 year. moved here from [place] 2 or 3 years ago. but lived here originally. raised in [place]. has one son delivered at [facility] 21 years ago. Last PAP: 03/08/23, neg with neg HPV History of abnormal PAP: yes, but has been a very long time (>5 years) and was hpv pos with neg colp Last mammogram: 03/15/23 History of abnormal mammogram: no Colon cancer screening: Up to date Other preventative health care screenings: followed by Dr. Adan Arteaga Female Reproductive History Questions: metorrhagia: No, sexually active: Yes, dyspareunia: No and PCB: No Menopausal Symptoms: No mood changes, No difficulty concentrating, No sleep problems and No change in libido ROS Const Constitutional: Reports as per HPI; Denies fatigue, increased appetite, poor appetite, weight gain or weight loss Cardio Card: Denies chest pain Resp Resp: Denies cough or dyspnea GI GI: Reports as per HPI; Denies abdominal pain, bloating, constipation, nausea or vomiting : Reports as per HPI and other; Denies difficulty voiding, dysuria, hematuria, nipple discharge, pelvic pain, prolapse symptoms, urinary frequency, urinary incontinence, urinary urgency, vaginal discharge, vaginal dryness, vaginal odor or vaginal pruritus Skin Skin/Breast: Denies changing lesions, breast mass, breast pain, breast skin changes or nipple discharge Psych Psych: Denies anxiety, change in libido, depression or difficulty concentrating Exam Const General: cooperative, healthy appearing, comfortable, no acute distress, well developed and well groomed HENWV Head: normal to inspection and normocephalic Ears: hearing grossly normal bilaterally and external ears normal Nose: external nose normal Face and sinus: normal facial exam Neck Neck: normal visual inspection, full ROM and no lymphadenopathy Thyroid: thyroid normal Chest Chest palpation inspection: normal inspection of the chest Breast inspection: normal inspection of the breasts and normal inspection of the axillae Breast palpation: normal palpation of the breasts, normal palpation of the axillae and no axilla (more content not included)... Normal [facility] Service comment (Unsp spec) [Interp]Ordered By: Natalie Chen on 03-11-2024 Pap Smear Comment (3) . . [facility] Brain W/WO Contraston 2023 Brain W/WO Contrast [facility] [address] [place] [address] Brain W/WO Contrast MR#: [id number] Acct: [id number] Name: EMILY MCCLENDON Rep #: [id number] : 1970 F 52 From: Eloy Zheng MD PCP: Dr. James Arteaga MD Status: REG CLI Study: Brain W/WO Contrast Date of Exam: 11/01/23 Exam# [id number] Ordering Dr: James Arteaga MD [id number] INDICATION: visual changes, dizziness, hx CVA and caroted stent EXAMINATION: MRI - MR Brain WO/W Contrast TECHNIQUE: Multiplanar and multisequence MR images of the brain were obtained without and with gadolinium. IV Contrast Dosage and Agent: 15 ml clariscan IV contrast. COMPARISON: None FINDINGS: BRAIN PARENCHYMA: Normal midline developmental anatomy. No Chiari malformation. Unremarkable sella. Cerebellar pontine angles are clear. No evidence of intracranial space occupying mass or mass effect. No diffusion restriction. No evidence of prior hemorrhage. Left lateral inferior frontal and left parietal localized encephalomalacia with volume loss and mild gliosis compatible with prior injuries. No abnormal brain parenchymal or meningeal enhancement. 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 Minimal periventricular and subcortical T2 hyperintense chronic small vessel white matter signal change. INTERNAL AUDITORY CANALS: The internal auditory canals are well visualized and patent. No mass identified. CSF SPACES: Appropriate for age. No hydrocephalus. Basal cisterns are patent. VASCULAR SYSTEM: Normal flow voids in the major intracranial circulation. CALVARIUM, SKULL BASE, PARANASAL SINUSES AND MASTOID AIR CELLS: Clear. No expansile changes. ORBITS: Both globes, extraocular muscles, optic nerves and retrobulbar fat appear unremarkable. MRI/Brain W/WO Contrast IMPRESSION: No evidence of acute ischemic stroke or enhancing mass. 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 Electronically Signed: Eloy Zheng MD at 8:19 EDT Reading Location ID and State: [facility] / ID Tel , Service support , CC: Dr. James Arteaga MD Upholstery Repairer: Signed Normal [facility] CREATININE FINGERSTICKon CREATININE WB < 1.0 Normal 0.55-1.02 [facility] Comment on above: Performed By: #### L 9100.0200 #### [facility] [address] [place], [address] EGFR WB > 60.0000 Normal >60 [facility] Comment on above: Performed By: #### L 9100.0200 #### [facility] [address] [place], [address] Absolute lymphocyte countOrd ered By: James Arteaga on 04-13-2023 Lymphocytes Auto (Unsp spec) [#/Vol] 2.67 10*3/uL 0.83-4.51 [facility] Automated lymphocyte count a s percentage of total leukocytesOrdered By: James Arteaga on 04-13-2023 Lymphocytes/100 WBC Auto (Unsp spec) 39.1 % 19-41 [facility] Basophil percentageOrdered B y: James Arteaga on 04-13-2023 Basophils/100 WBC (Bld) 0.9 % 0-1 [facility] Bilirubin [Mass/Vol] 0.40 mg/dL 0.20-1.00 [facility] Comment on above: For patients on eltr ombopag therapy, use of Dimension [place] TBIL is not recommended. Chloride [Moles/Vol] 109 mmol/L 98-107 [facility] Cholesterol [Mass/Vol] 139 mg/dL <200 [facility] Comment on above: <200 mg/dL Desirable 200-240 mg/dL Borderline >240 mg/dL High Risk Eosinophils/100 WBC (Bld) 1.0 % 0-5 [facility] Glucose [Mass/Vol] 101 mg/dL 74-106 [facility] Comment on above: Fasting Glucose resu lt from 100 to 125 mg/dL suggests IMPAIRED HOMEOSTASIS per A.D.A. criteria. Hemoglobin (Bld) [Mass/Vol] 13.5 g/dL 12.0-15.0 [facility] Monocytes/100 WBC (Bld) 9.2 % 0-10 [facility] Neutrophils (Bld) [#/Vol] 3.4 10*3/uL 2.0-7.7 [facility] Neutrophils/100 WBC (Bld) 49.5 % 47-70 [facility] Potassium [Moles/Vol] 3.8 mmol/L 3.5-5.1 [facility] Protein [Mass/Vol] 7.2 g/dL 6.4-8.2 [facility] Sodium [Moles/Vol] 142 mmol/L 136-145 [facility] Triglyceride [Mass/Vol] 144 mg/dL <199 [facility] Comment on above: The drugs N-Acetylcy steine and Metamizole may falsely depress this assay.Serum Triglycerides Reference Interval Normal <150 mg/dL Borderline high 150 - 199 mg/dL High 200 - 499 mg/dL Very High > or = 500 mg/dL WBC (Bld) [#/Vol] 6.8 10*3/uL 4.4-11.0 [facility] Determination of erythrocyte mean corpuscular volume (MCV)Ordered By: James Arteaga on 04-13-2023 MCV (RBC) [Entitic vol] 88.1 fL 81-99 [facility] Erythrocyte distribution wid th ratioOrdered By: James Arteaga on 04-13-2023 Erythrocyte distribution width (RBC) [Ratio] 13.3 % 11.6-14.6 [facility] Erythrocyte distribution wid th standard deviationOrdered By: James Arteaga on 04-13-2023 Erythrocyte distribution width (RBC) [Entitic vol] 43.7 fL 35.1-43.9 [facility] Hematocrit Auto (Bld) [Volum e fraction]Ordered By: James Arteaga on 04-13-2023 Hematocrit (Bld) [Volume fraction] 41.5 % 37-47 [facility] Immature granulocytes/100 WB C Auto (Bld)Ordered By: James Arteaga on 04-13-2023 Immature granulocytes/100 WBC (Bld) 0.300 % 0.0-0.9 [facility] Comment on above: IG% - Immature Granu locytes (promyelocytes, myelocytes and metamyelocytes) > 1% indicates that a LEFT SHIFT is Present. Laboratory - Chemistry and C hemistry - challengeOrdered By: James Arteaga on 04-13-2023 Albumin/Globulin [Mass ratio] 1.2 {ratio} 0.9-2.4 [facility] ALP [Catalytic activity/Vol] 73 U/L 45-117 [facility] ALT [Catalytic activity/Vol] 25 U/L 13-56 [facility] Cholesterol in HDL [Mass/Vol] 35 mg/dL >40 [facility] Comment on above: The drugs N-Acetylcy steine and Metamizole may falsely depress this assay. Reference Range HDL <40 mg/dL Low HDL Cholesterol HDL >or= 60 mg/dL High HDL Cholesterol Cholesterol in LDL [Mass/Vol] 75 mg/dL 0-130 [facility] CO2 [Moles/Vol] 29.0 mmol/L 21.0-32.0 [facility] Globulin (S) [Mass/Vol] 3.3 g/dL 2.2-4.2 [facility] Urea nitrogen/Creatinine [Mass ratio] 17.3 mg/mg 10-20 [facility] - Hematology and Cell countsOrdered By: James Arteaga on 04-13-2023 MCH (RBC) [Entitic mass] 28.7 pg 27.0-32.0 [facility] MCHC (RBC) [Mass/Vol] 32.5 g/dL 32-36 [facility] Nucleated RBC/100 WBC (Bld) [Ratio] 0 % 0-5 [facility] Platelet mean volume (Bld) [Entitic vol] 10.2 fL 6.2-12.0 [facility] Platelets (Bld) [#/Vol] 314 10*3/uL 150-450 [facility] No Panel InformationOrdered By: James Arteaga on 04-13-2023 Estimated GFR (MDRD) Amer 105 mL/min >60 [facility] Comment on above: GFR Calc Estimated GFR (MDRD) Non-Af Amer 86 mL/min >60 [facility] Comment on above: Non- GFR Calc Urine Microalbumin/Creatinine Ratio 4.4 mg/g CRE <30 [facility] VLDL Cholesterol 29 mg/dL 5-40 [facility] RBC Auto (Bld) [#/Vol]Ordere d By: James Arteaga on 04-13-2023 RBC (Bld) [#/Vol] 4.71 10*6/uL 4.2-5.4 [facility] Serum or plasma calcium maria teresa urement (mass/volume)Ordered By: James Arteaga on 04-13-2023 Calcium [Mass/Vol] 9.3 mg/dL 8.5-10.1 [facility] Serum or plasma creatinine m easurement (mass/volume)Ordered By: James Arteaga on 04-13-2023 Creatinine [Mass/Vol] 0.75 mg/dL 0.55-1.02 [facility] Comment on above: The validity of the calculated GFR & GFRAA in patients over 70 years has not been determined. Clinical correlation is essential. Serum or plasma thyroid stim ulating hormone (TSH) measurement (units/volume)Ordered By: James Arteaga on 04-13-2023 TSH Qn 2.78 uIU/mL 0.358-3.74 [facility] Serum or plasma urea nitroge n measurement (mass/volume)Ordered By: James Arteaga on 04-13-2023 Urea nitrogen [Mass/Vol] 13 mg/dL 7-18 [facility] Thin prep Papanicolaou smear with manual screeningOrdered By: James Arteaga on 04-13-2023 Thin prep Papanicolaou smear with manual screening 3.9 g/dL 3.2-5.0 [facility] Thin prep Papanicolaou smear with manual screening 17 U/L 15-37 [facility] Thin prep Papanicolaou smear with manual screening 4 5-15 [facility] Thin prep Papanicolaou smear with manual screening 7.2 mg/L NO RANGE EST. [facility] Urine creatinine measurement (mass/volume)Ordered By: James Arteaga on 04-13-2023 Creatinine (U) [Mass/Vol] 164.00 mg/dL NO RANGE EST. [facility] Cervical or vagninal specime n microscopic examination by cytology stain (reported asOrdered By: Char Haney on 03-08-2023 Cytology report Cyto stain Doc (Cvx/Vag) Comment . [facility] Comment on above: The Pap smear is a s creening test designed to aid in thedetection of premalignant and malignant conditions of theuterine cervix. It is not a diagnostic procedure andshould not be used as the sole means of detecting cervicalcancer. Both false-positive and false-negative reports dooccur. Detection in cervical specim en of any of human papilloma virus (HPV) 16, 18, 31, 33,Ordered By: Char Haney on 03-08-2023 HPV 16+18+31+33+35+39+45+51+ 52+56+58+59+66+68 DNA Probe+sig amp Ql (Cvx) Negative Negative [facility] Comment on above: This nucleic acid am plification test detects fourteen high-risk HPV types (16,18,31,33,35,39,45,51,52,56,58,59,66,68)without differentiation. Laboratory - CytologyOrdered By: Char Haney on 03-08-2023 Front Office Help Cyto stain Nom (Cvx/Vag) [ID] Comment . [facility] Comment on above: Coral Lucas, Cyto technologist (ASCP) Laboratory - Miscellaneous t estsOrdered By: Char Haney on 03-08-2023 Service comment (Unsp spec) [Interp] Comment . [facility] Comment on above: This liquid based Th inPrep(R) pap test was screened withthe use of an image guided system. Service comment (Unsp spec) [Interp] . . [facility] Liquid-based cerv Pap + CT/G C by VIDA w reflex to high-risk HPV for ASCUSOrdered By: Char Haney on 03-08-2023 Cytology report Cyto stain.thin prep Doc (Cvx/Vag) Comment . [facility] Comment on above: Criteria not met, HP V Genotype not performed.Performed at: - [facility] [id number] Director: Debi Polanco MD, Phone: [phone] at: = - [facility] [id number] Director: Debi Polanco MD, Phone: [phone] No Panel InformationOrdered By: Char Haney on 03-08-2023 Pathology report final diagnosis Narrative Comment . [facility] Comment on above: NEGATIVE FOR INTRAEP ITHELIAL LESION OR MALIGNANCY. Absolute lymphocyte counton 02-09-2023 Lymphocytes Auto (Unsp spec) [#/Vol] 3.73 10*3/uL 0.83-4.51 [facility] Basophil percentageon 2022 Basophils/100 WBC (Bld) 0.5 % 0-1 [facility] Chloride [Moles/Vol] 105 mmol/L 98-107 [facility] Eosinophils/100 WBC (Bld) 0.8 % 0-5 [facility] Glucose [Mass/Vol] 107 mg/dL 74-106 [facility] Comment on above: Fasting Glucose resu lt from 100 to 125 mg/dL suggests IMPAIRED HOMEOSTASIS per A.D.A. criteria. Neutrophils (Bld) [#/Vol] 5.4 10*3/uL 2.0-7.7 [facility] Neutrophils/100 WBC (Bld) 53.8 % 47-70 [facility] Potassium [Moles/Vol] 3.9 mmol/L 3.5-5.1 [facility] Sodium [Moles/Vol] 138 mmol/L 136-145 [facility] WBC (Bld) [#/Vol] 10.1 10*3/uL 4.4-11.0 [facility] Blood erythrocytes count (nu mber/volume)on 02-09-2023 RBC (Bld) [#/Vol] 4.69 10*6/uL 4.2-5.4 [facility] Blood hemoglobin measurement (mass/volume)on 02-09-2023 Hemoglobin (Bld) [Mass/Vol] 13.4 g/dL 12.0-15.0 [facility] Blood lymphocytes/100 leukoc yteson 02-09-2023 Lymphocytes/100 WBC (Bld) 36.9 % 19-41 [facility] Blood monocytes/100 leukocyt eson 02-09-2023 Monocytes/100 WBC (Bld) 7.7 % 0-10 [facility] Blood platelet mean volumeon 02-09-2023 Platelet mean volume (Bld) [Entitic vol] 9.9 fL 6.2-12.0 [facility] Determination of erythrocyte mean corpuscular volume (MCV)on 02-09-2023 MCV (RBC) [Entitic vol] 88.3 fL 81-99 [facility] Hematocrit Auto (Bld) [Volum e fraction]on 02-09-2023 Hematocrit (Bld) [Volume fraction] 41.4 % 37-47 [facility] INR in Blood by Coagulation assayon 02-09-2023 INR Coag (Bld) [Relative time] 0.9 {INR} [facility] Laboratory - Chemistry and C hemistry - challengeon 02-09-2023 CO2 [Moles/Vol] 30.0 mmol/L 21.0-32.0 [facility] Urea nitrogen/Creatinine [Mass ratio] 18.3 mg/mg 10-20 [facility] Laboratory - Coagulationon 1 2-14-2023 aPTT Coag (Bld) [Time] 28.6 s 24.1-36.2 [facility] PT Coag (PPP) [Time] 12.6 s 11.7-14.9 [facility] Laboratory - Hematology and Cell countson 02-09-2023 Erythrocyte distribution width (RBC) [Entitic vol] 45.4 fL 35.1-43.9 [facility] Erythrocyte distribution width (RBC) [Ratio] 14.0 % 11.6-14.6 [facility] Immature granulocytes/100 WBC (Bld) 0.300 % 0.0-0.9 [facility] Comment on above: IG% - Immature Granu locytes (promyelocytes, myelocytes and metamyelocytes) > 1% indicates that a LEFT SHIFT is Present. MCH (RBC) [Entitic mass] 28.6 pg 27.0-32.0 [facility] Nucleated RBC/100 WBC (Bld) [Ratio] 0 % 0-5 [facility] MCHC Auto (RBC) [Mass/Vol]on 02-09-2023 MCHC (RBC) [Mass/Vol] 32.4 g/dL 32-36 [facility] No Panel Informationon 02-09 Estimated GFR (MDRD) Amer 82 mL/min >60 [facility] Comment on above: GFR Calc Estimated GFR (MDRD) Non-Af Amer 68 mL/min >60 [facility] Comment on above: Non- GFR Calc Platelets bldon 02-09-2023 Platelets (Bld) [#/Vol] 330 10*3/uL 150-450 [facility] Serum or plasma calcium maria teresa urement (mass/volume)on 02-09-2023 Calcium [Mass/Vol] 9.3 mg/dL 8.5-10.1 [facility] Serum or plasma creatinine m easurement (mass/volume)on 02-09-2023 Creatinine [Mass/Vol] 0.93 mg/dL 0.55-1.02 [facility] Comment on above: The validity of the calculated GFR & GFRAA in patients over 70 years has not been determined. Clinical correlation is essential. Serum or plasma urea nitroge n measurement (mass/volume)on 02-09-2023 Urea nitrogen [Mass/Vol] 17 mg/dL 7-18 [facility] Thin prep Papanicolaou smear with manual screeningon 02-09-2023 Thin prep Papanicolaou smear with manual screening 3 5-15 [facility] Cervical or vagninal specime n microscopic examination by cytology stain (reported ason 11-02-2021 Cytology report Cyto stain Doc (Cvx/Vag) Comment . [facility] Work Phone: Comment on above: The Pap smear is a s creening test designed to aid in thedetection of premalignant and malignant conditions of theuterine cervix. It is not a diagnostic procedure andshould not be used as the sole means of detecting cervicalcancer. Both false-positive and false-negative reports dooccur. Detection in cervical specim en of any of human papilloma virus (HPV) 16, 18, 31, 33,on 11-02-2021 HPV 16+18+31+33+35+39+45+51+ 52+56+58+59+66+68 DNA Probe+sig amp Ql (Cvx) Negative Negative [facility] Work Phone: Comment on above: This nucleic acid am plification test detects fourteen high-risk HPV types (16,18,31,33,35,39,45,51,52,56,58,59,66,68)without differentiation.Performed at: - [facility] [id number] Director: Debi Polanco MD, Phone: [phone] at: = - [facility] [address] [id number] Director: Debi Polanco MD, Phone: [phone] Laboratory - Cytologyon Front Office Help Cyto stain Nom (Cvx/Vag) [ID] Comment . [facility] Work Phone: Comment on above: Mariano Gautam totechnologist (ASCP) Laboratory - Miscellaneous t estson 11-02-2021 Service comment (Unsp spec) [Interp] Comment . [facility] Work Phone: Comment on above: This liquid based Th inPrep(R) pap test was screened withthe use of an image guided system. Service comment (Unsp spec) [Interp] . . [facility] Work Phone: No Panel Informationon 11-02 Pathology report final diagnosis Narrative Comment . [facility] Work Phone: Comment on above: NEGATIVE FOR INTRAEP ITHELIAL LESION OR MALIGNANCY. Vital Signs Date Time Vital Sign Value Performing Clinician Faci lity 08-27-2024 10:14-0400 Diastolic blood pressure 94 mm[Hg] Dr. James Arteaga MD Work Phone: [facility] 08-27-2024 10:14-0400 Systolic blood pressure 142 mm[Hg] Dr. James Arteaga MD Work Phone: [facility] 08-27-2024 09:03-0400 Body height 162.[address] James Arteaga MD Work Phone: [facility] 08-27-2024 09:03-0400 Body mass index (BMI) [Ratio] 30.5 kg/m2 Dr. James Arteaga MD Work Phone: [facility] 08-27-2024 09:03-0400 Body temperature 98.6 [degF] Dr. James Arteaga MD Work Phone: [facility] 08-27-2024 09:03-0400 Body weight 80.[address] James Arteaga MD Work Phone: [facility] 08-27-2024 09:03-0400 Heart rate 68 /min Dr. James Arteaga MD Work Phone: [facility] 08-27-2024 09:03-0400 Respiratory rate 16 /min Dr. James Arteaga MD Work Phone: [facility] 08-27-2024 09:03-0400 SaO2% (BldA) [Mass fraction] 99 % Dr. James Arteaga MD Work Phone: [facility] 03-11-2024 08:19-0500 Body height 162.[address] James Arteaga MD Work Phone: [facility] 03-11-2024 08:19-0500 Body mass index (BMI) [Ratio] 30.9 kg/m2 Dr. James Arteaga MD Work Phone: [facility] 03-11-2024 08:19-0500 Body weight 81.[address] James Arteaga MD Work Phone: [facility] 03-11-2024 08:19-0500 Diastolic blood pressure 87 mm[Hg] Dr. James Arteaga MD Work Phone: [facility] 03-11-2024 08:19-0500 Systolic blood pressure 145 mm[Hg] Dr. James Arteaga MD Work Phone: [facility] 03-08-2023 14:31-0500 Body height 162.56 cm No Primary Care Physician [facility] 03-08-2023 14:31-0500 Body mass index (BMI) [Ratio] 31.1 kg/m2 No Primary Care Physician [facility] 03-08-2023 14:31-0500 Body weight 82.15 kg No Primary Care Physician [facility] 03-08-2023 14:31-0500 Diastolic blood pressure 80 mm[Hg] No Primary Care Physician [facility] 03-08-2023 14:31-0500 Systolic blood pressure 142 mm[Hg] No Primary Care Physician [facility] Encounters Encounter Date Encounter Type Care Provider Facility Start: 08-28-2024 End: 08-28-[address] Ahsan Javier MD -[facility] Work Phone: Start: 08-28-2024 End: 08-28-2024 ambulatory James Arteaga Facility:[facility] Start: 08-27-2024 End: 08-27-[address] Ahsan Javier MD -[facility] Work Phone: Start: 08-27-2024 End: 08-27-[address] James Arteaga MD Work Phone: -[facility] Start: 07-03-2024 End: 07-03-[address] James Arteaga MD Work Phone: [facility] Work Phone: Start: 07-03-2024 End: 07-03-[address] James Arteaga MD -Labor[facility], [place] Work Phone: Start: 07-03-2024 End: 07-03-2024 ambulatory James Arteaga Facility:[facility] Start: 06-18-2024 End: 06-18-[address] James Arteaga MD Work Phone: [facility] Work Phone: Start: 06-17-2024 End: 06-18-[address] James Arteaga MD Work Phone: [facility] Work Phone: Start: 06-17-2024 End: 06-17-[address] James Arteaga MD -[facility] [place] Work Phone: Start: 06-17-2024 End: 06-17-2024 ambulatory James Arteaga Facility:[facility] Start: 06-03-2024 End: 06-03-[address] James Arteaga MD Work Phone: [facility] Work Phone: Start: 06-03-2024 End: 06-03-[address] Ruy Davis MD -[facility] [place] Work Phone: Start: 06-03-2024 End: 06-03-2024 ambulatory Ruy Davis Facility:[facility] Start: 03-21-2024 End: 03-21-[address] Natalie Elizabeth DO -[facility] Work Phone: Start: 03-21-2024 End: 03-21-2024 ambulatory James Arteaga Facility:[facility] Start: 03-19-2024 End: 03-19-[address] Natalie Elizabeth DO -[facility] Work Phone: Start: 03-19-2024 End: 03-19-2024 ambulatory Natalie Elizabeth Facility:[facility] Start: 03-11-2024 End: 03-11-[address] Natalie Elizabeth DO -[facility] Start: 03-11-2024 End: 03-11-[address] Natalie Elizabeth DO -[facility] Work Phone: Start: 03-11-2024 End: 03-11-[address] Natalie Elizabeth DO [facility] Start: 03-11-2024 End: 03-11-2024 ambulatory James Arteaga Facility:[facility] Start: 03-11-2024 End: 03-11-2024 ambulatory James Arteaga Facility:[facility] Start: 11-01-2023 End: 11-01-2023 ambulatory James Arteaga Facility:[facility] Start: 04-13-2023 End: 04-13-2023 ambulatory No Primary Care Physician [facility] Work Phone: Start: 04-13-2023 End: 04-13-2023 Patient encounter procedure No Primary Care Physician [facility] Start: 03-15-2023 End: 03-15-2023 ambulatory No Primary Care Physician [facility] Work Phone: Start: 03-15-2023 End: 03-15-2023 Patient encounter procedure No Primary Care Physician [facility] Work Phone: Start: 03-08-2023 End: 03-08-2023 ambulatory No Primary Care Physician [facility] Work Phone: Start: 03-08-2023 End: 03-08-2023 Patient encounter procedure No Primary Care Physician [facility]-Laboratory, Specimen Work Phone: Start: 03-08-2023 End: 03-08-2023 Patient encounter procedure No Primary Care Physician [facility] Work Phone: Start: 02-09-2023 End: 02-09-2023 ambulatory [facility] Work Phone: Start: 02-09-2023 End: 02-09-2023 Patient encounter procedure [facility]-Laboratory Work Phone: Start: 02-22-2022 End: 02-22-2022 ambulatory [facility] Work Phone: Start: 02-22-2022 End: 02-22-2022 Patient encounter procedure [facility] Start: 11-02-2021 End: 11-02-2021 ambulatory [facility] Work Phone: Start: 11-02-2021 End: 11-02-2021 Patient encounter procedure [facility]-Laboratory, Specimen Procedures Date Procedure Procedure Detail Performing Clinician Start: 08-28-[address] Ayla Arteaga MD Work Phone: Comment on above: Performed at: [address] [id number] Director: Lisa Mensah MD, Phone: [phone] at: [facility] [id number] Director: Eran Gilman PhD, Phone: [phone] Start: 08-28-2024 Antibody to centrome re measurement Dr. James Arteaga MD Work Phone: Comment on above: Test not performed Start: 08-28-2024 Antibody to extracta ble nuclear antigen measurement Dr. James Arteaga MD Work Phone: Comment on above: Test not performed Start: 08-28-2024 Antibody to KARISHMA-[address] James Arteaga MD Work Phone: Comment on above: Test not performed Start: 08-28-2024 Antibody to lupus La protein measurement Dr. James Arteaga MD Work Phone: Comment on above: Test not performed Start: 08-28-2024 Antibody to SS-A measurement Dr. James Arteaga MD Work Phone: Comment on above: Test not performed Start: 08-28-[address] James Arteaga MD Work Phone: Comment on above: Test not performed Start: 08-28-2024 MEDICAL DIRECTOR/HEAD TEAM PHYSICIAN antibody measurement Dr. James Arteaga MD Work Phone: Comment on above: Test not performed Start: 06-18-2024 Magnetic resonance angiography of neck without contrast Dr. James Arteaga MD Work Phone: Start: 06-18-2024 Magnetic resonance angiography of head without contrast Dr. James Arteaga MD Work Phone: Start: 06-18-2024 MRI of brain with contrast Dr. James Arteaga MD Work Phone: Start: 03-21-[address] James Arteaga MD Work Phone: Start: 03-19-2024 Screening mammography Gloria Arteaga MD Work Phone: Start: 03-11-2024 Liquid based cervica l cytology screening Dr. James Arteaga MD Work Phone: Comment on above: NEGATIVE FOR INTRAEP ITHELIAL LESION OR MALIGNANCY. This liquid based Th inPrep(R) pap test was screened withthe use of an image guided system. Start: 03-15-2023 Screening mammography N o Primary Care Physician Start: 02-22-2022 Screening mammography Plan of Treatment Date Care Activity Detail Author Start: 08-28-2024 Cardiolipin IgA and IgG and IgM panel - Serum [facility] Start: 08-28-2024 Complement C3 [Mass/ volume] in Serum or Plasma [facility] Start: 08-28-2024 Complement C4 [Mass/ volume] in Serum or Plasma [facility] Start: 08-28-2024 Complement total hem olytic CH50 [Units/volume] in Serum or Plasma [facility] Start: 08-28-2024 Factor V Leiden genotype [facility] Start: 08-28-2024 Folic acid measurement, RBC [facility] Start: 08-28-2024 Lupus anticoagulant assay [facility] Start: 08-28-2024 Protein C [Units/vol ume] in Platelet poor plasma by Coagulation assay [facility] Start: 08-28-2024 Protein C Ag actual/ normal in Platelet poor plasma by Immunoassay [facility] Start: 08-28-2024 Protein S assay [facility] Start: 08-28-2024 Protein S function estimate [facility] Start: 08-28-2024 Targeted analysis for gene mutation [facility] Start: 08-28-2024 Thiamine measurement [facility] Start: 08-28-2024 [facility] Antithrombin III assay [facility] Antithrombin III assay, functional [facility] Cardiolipin IgG Ab [ Units/volume] in Serum or Plasma [facility] Cardiolipin IgM Ab [ Units/volume] in Serum or Plasma [facility] Electrocardiographic procedure [facility] F5 gene mutations fo und [Identifier] in Blood or Tissue by Molecular genetics method Nominal [facility] Hematocrit [Volume F raction] of Blood [facility] IgA anticardiolipin level [facility] Lupus anticoagulant screening test [facility] MG Breast - bilateral Screening [facility] Partial thromboplastin time ratio [facility] Protein S Free Ag ac tual/normal in Platelet poor plasma by Immunoassay [facility] Protein S, functional assay [facility] Thrombin time [facility] Vitamin B6 measurement [facility] Payers Date Payer Category Payer Self-pay 2023 Unknown [id number] 2003 Unknown [employer] [id number] Unknown [place] [id number] Unknown [id number] Unknown [id number] Unknown [id number] Unknown [id number] Unknown [id number] Unknown [id number] Unknown [id number] Unknown [id number] Unknown [id number] Unknown [id number] Unknown [id number] Social History Date Type Detail [facility] Work Phone: Start: 1970 Sex Assigned At Female [facility] Start: 03-08-2023 Tobacco smoking stat [facility] Unknown if ever smoked [facility] Start: 03-11-2024 [facility] (finding[facility] Start: 06-06-2024 End: 06-20-2024 Sex Female (finding) [facility] Start: 08-27-2024 [facility] Clinical Notes 11-02-2021 to 08-27-2024 Note Date & Type Note Facility 08-27-2024 Evaluation note Diagnosis Onset Date Resolution History of stroke acute August 8:47am 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 Endocervical and/or squamous metaplasticcells (endocervical component)are present.[facility] A#[id number] Defiance Regional HospitalComment on above:Satisfactory for evaluation. Endocervical and/or squamous metaplasticcells (endocervical component)are present.03-11-2024 NotePap Smear Specimen AdequacyJanuary 2024 12:00pmComment.Satisfactory for evaluation. Endocervical and/or squamous metaplasticcells (endocervical component)are present.[facility] A#[id number] Health [facility] on above:Satisfactory for evaluation. Endocervical and/or squamous metaplasticcells (endocervical component)are present.03-11-2024 Evaluation note* Diagnosis Onset Date Resolution Status Admit Date Encounter for routine gynecological examination noneactive Febjaniya y 2024 8:15am [facility] Work Phone: 1(509) 126-760101-10-2024 NotePap Smear Specimen AdequacyJanuary 2023 11:59pmComment.Satisfactory for evaluation. Endocervical and/or squamous metaplasticcells (endocervical component)are present.[facility] A#[id number] Hospital [facility]Com[facility] on above:Satisfactory for evaluation. Endocervical and/or squamous metaplasticcells (endocervical component)are present.03-08-2023 NotePap Smear Specimen AdequacyJanuary 2023 11:59pmComment.Satisfactory for evaluation. Endocervical and/or squamous metaplasticcells (endocervical component)are present.[facility] A#[id number] Hospital [facility] EastComapex medical center on above:Satisfactory for evaluation. Endocervical and/or squamous metaplasticcells (endocervical component)are present.03-08-2023 NotePap Smear Specimen AdequacyJanuary 2023 11:59pmComment.Satisfactory for evaluation. Endocervical and/or squamous metaplasticcells (endocervical component)are present.[facility] A#[id number] Hospital [facility] EastComapex medical center on above:Satisfactory for evaluation. Endocervical and/or squamous metaplasticcells (endocervical component)are present.11-02-2021 NotePap Smear Specimen AdequacySeptember 2021 10:25amComment.Satisfactory for evaluation. Endocervical and/or squamous metaplasticcells (endocervical component)are present.[facility] A#[id number] Defiance Regional Hospital Work Phone: Comment on above:Satisfactory for evaluation. Endocervical and/or squamous metaplasticcells (endocervical component)are present.Evaluation noteNo assessment information availableWProMedica Defiance Regional Hospital Work Phone: Evaluation note* Diagnosis Onset Date Resolution Status Encounter for routine gynecological examination noneactive [facility] Work Phone: Reason for referral (narrative)No reason for referral information availableWProMedica Defiance Regional Hospital Work Phone: Chief Complaint and Reason for Visit Chief Complaint SCREENING Chief Complaint Annual ([employer]) Reason for Visit Encounter for routin e gynecological examination Chief Complaint Annual ([employer]) SCREENING Reason for Visit Encounter for routin e gynecological examination Chief Complaint Admit Date Annual ([employer]) March 11, 2024 8 :15am SCREENING March 19, 2024 9 :31am ABN MAMM LEFT BREAST March 21, 2024 7:46am Amaurosis fugax June 03, 2024 4:58 pm Reason for Visit Admit Date Encounter for routine gynecological exam ination March 11, 2024 8:15am Chief Complaint Admit Date Annual ([employer]) March 11, 2024 8 :15am SCREENING March 19, 2024 9 :31am ABN MAMM LEFT BREAST March 21, 2024 7:46am Amaurosis fugax June 03, 2024 4:58 pm EORDERS June 17, 2024 8:5 1am BILAT CAROTID OCCLUSION/STENOSIS, INT CA ROTID STEN June 18, 2024 11:49am Chief Complaint Admit Date Annual ([employer]) March 11, 2024 8 :15am SCREENING March 19, 2024 9 :31am ABN MAMM LEFT BREAST March 21, 2024 7:46am Amaurosis fugax June 03, 2024 4:58 pm EORDERS June 17, 2024 8:5 1am BILAT CAROTID OCCLUSION/STENOSIS, INT CA ROTID STEN June 18, 2024 11:49am EORDER July 03, 2024 9:45am Chief Complaint Admit Date Amaurosis fugax June 03, 2024 4:58 pm EORDERS June 17, 2024 8:5 1am BILAT CAROTID OCCLUSION/STENOSIS, INT CA ROTID STEN June 18, 2024 11:49am EORDER July 03, 2024 9:45am Consult August 27, 2024 8:47a m Chief Complaint Admit Date Amaurosis fugax June 03, 2024 4:58 pm EORDERS June 17, 2024 8:5 1am BILAT CAROTID OCCLUSION/STENOSIS, INT CA ROTID STEN June 18, 2024 11:49am EORDER July 03, 2024 9:45am Consult August 27, 2024 8:47a m EORDERS August 28, 2024 10:08 am Reason for Visit Admit Date History of stroke August 27, 2024 8:47a m 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 27, 2024 8:47a m Summary Purpose Family History No Family History Records Found Advance Directives No Advanced Directives Records Found Additional Source Comments Goals (unrecognized section and content) Goals may be documented in a n alternate sectionGoals may be documented in an alternate sectionGoals may be documented in an alternate sectionGoals may be documented in an alternate sectionGoals may be documented in an alternate sectionGoals may be documented in an alternate sectionGoals may be documented in an alternate sectionGoals may be documented in an alternate sectionGoals may be documented in an alternate sectionGoals may be documented in an alternate sectionGoals may be documented in an alternate section Care Teams (unrecognized sec tion and content) Team Status: Active Member Role Status Dates Eloy Dennis MD Family Provider Active Dr. James Arteaga MD Primary Care Provider Active Team Status: Inactive Member Role Status Dates BABAK HERNANDEZ Attending Provider, Referring Provider Active Dr. James Arteaga MD Primary Care Provider Active Team Status: Inactive Member Role Status Dates No Primary Care Physician Referring Provider Active Char Haney EDUCATIONAL AID, EDUCATIONAL AID-C Attending Provider Active Dr. James Arteaga MD Primary Care Provider Active Team Status: Inactive Member Role Status Dates Dr. James Arteaga MD Primary Care Provider Active Char Haney EDUCATIONAL AID, EDUCATIONAL AID-C Attending Provider Active Team Status: Inactive Member Role Status Dates Dr. James Arteaga MD Primary Care Provider Active Char Haney EDUCATIONAL AID, EDUCATIONAL AID-C Attending Provider, Referring Provider Active Team Status: Inactive Member Role Status Dates Dr. James Arteaga MD Primary Care Provider, Attending Dustin valdivia Active Team Status: Inactive Member Role Status Dates Dr. James Arteaga MD Primary Care Provider Active Start: March 11, 2024 End: March 11, 2024 Dr. James Arteaga MD Referring Provider Active St art: March 11, 2024 End: March 11, 2024 Dr. Natalie Elizabeth DO Attending Provider Activ e Start: March 11, 2024 End: March 11, 2024 Team Status: Inactive Member Role Status Dates Dr. James Arteaga MD Primary Care Provider Active Start: March 11, 2024 End: March 11, 2024 Dr. Natalie Elizabeth DO Attending Provider Activ e Start: March 11, 2024 End: March 11, 2024 Dr. Natalie Elizabeth DO Referring Provider Activ e Start: March 11, 2024 End: March 11, 2024 Team Status: Inactive Member Role Status Dates Dr. James Arteaga MD Primary Care Provider Active Start: March 19, 2024 End: March 19, 2024 Dr. Natalie Elizabeth DO Attending Provider Activ e Start: March 19, 2024 End: March 19, 2024 Dr. Natalie Elizabeth DO Referring Provider Activ e Start: March 19, 2024 End: March 19, 2024 Team Status: Inactive Member Role Status Dates Dr. James Arteaga MD Primary Care Provider Active Start: March 21, 2024 End: March 21, 2024 Dr. Natalie Elizabeth DO Attending Provider Activ e Start: March 21, 2024 End: March 21, 2024 Dr. Natalie Elizabeth DO Referring Provider Activ e Start: March 21, 2024 End: March 21, 2024 Team Status: Inactive Member Role Status Dates Dr. James Arteaga MD Primary Care Provider Active Start: June 03, 2024 End: June 03, 2024 Dr. Ruy Davis MD Attending Provider Active Start: June 03, 2024 End: June 03, 2024 Dr. Ruy Davis MD Referring Provider Active Start: June 03, 2024 End: June 03, 2024 Team Status: Active Member Role Status Dates Dr. James Arteaga MD Primary Care Provider Active Team Status: Inactive Member Role Status Dates Dr. James Arteaga MD Primary Care Provider Active Start: June 17, 2024 End: June 17, 2024 Dr. James Arteaga MD Attending Provider Active St art: June 17, 2024 End: June 17, 2024 Dr. James Arteaga MD Referring Provider Active St art: June 17, 2024 End: June 17, 2024 Team Status: Active Member Role Status Dates Dr. James Arteaga MD Primary Care Provider Active Start: June 18, 2024 BABAK HERNANDEZ Attending Provider Active Start: June 18, 2024 BABAK HERNANDEZ Referring Provider Active Start: June 18, 2024 Team Status: Inactive Member Role Status Dates Dr. James Arteaga MD Primary Care Provider Active Start: June 18, 2024 End: June 18, 2024 BABAK HERNANDEZ Attending Provider Active Start: June 18, 2024 End: June 18, 2024 BABAK HERNANDEZ Referring Provider Active Start: June 18, 2024 End: June 18, 2024 Team Status: Inactive Member Role Status Dates Dr. James Arteaga MD Primary Care Provider Active Start: July 03, 2024 End: July 03, 2024 Dr. James Arteaga MD Attending Provider Active St art: July 03, 2024 End: July 03, 2024 Dr. James Arteaga MD Referring Provider Active St art: July 03, 2024 End: July 03, 2024 Team Status: Active Member Role/Relationship Status Dates Dr. James Arteaga MD Primary Care Provider Active Team Status: Inactive Member Role/Relationship Status Dates Dr. James Arteaga MD Primary Care Provider Active Start: June 03, 2024 End: June 03, 2024 Dr. Ruy Davis MD Attending Provider Active Start: June 03, 2024 End: June 03, 2024 Dr. Ruy Davis MD Referring Provider Active Start: June 03, 2024 End: June 03, 2024 Team Status: Inactive Member Role/Relationship Status Dates Dr. James Arteaga MD Primary Care Provider Active Start: June 17, 2024 End: June 17, 2024 Dr. James Arteaga MD Attending Provider Active St art: June 17, 2024 End: June 17, 2024 Dr. James Arteaga MD Referring Provider Active St art: June 17, 2024 End: June 17, 2024 Team Status: Inactive Member Role/Relationship Status Dates Dr. James Arteaga MD Primary Care Provider Active Start: June 18, 2024 End: June 18, 2024 BABAK HERNANDEZ Attending Provider Active Start: June 18, 2024 End: June 18, 2024 BABAK HERNANDEZ Referring Provider Active Start: June 18, 2024 End: June 18, 2024 Team Status: Inactive Member Role/Relationship Status Dates Dr. James Arteaga MD Primary Care Provider Active Start: July 03, 2024 End: July 03, 2024 Dr. James Arteaga MD Attending Provider Active St art: July 03, 2024 End: July 03, 2024 Dr. James Arteaga MD Referring Provider Active St art: July 03, 2024 End: July 03, 2024 Team Status: Inactive Member Role/Relationship Status Dates Dr. James Arteaga MD Primary Care Provider Active Start: August 27, 2024 End: August 27, 2024 Dr. James Arteaga MD Referring Provider Active St art: August 27, 2024 End: August 27, 2024 Dr. Ahsan Javier MD Attending Provider Active Start: August 27, 2024 End: August 27, 2024 Team Status: Inactive Member Role/Relationship Status Dates Dr. James Arteaga MD Primary Care Provider Active Start: August 28, 2024 End: August 28, 2024 Dr. Ahsan Javier MD Attending Provider Active Start: August 28, 2024 End: August 28, 2024 Dr. Ahsan Javier MD Referring Provider Active Start: August 28, 2024 End: August 28, 2024 INFORMATION SOURCE (unrecogn ized section and content) DATE CREATED AUTHOR 09/01/2024 [facility] FOR RECORDS PERTAINING TO PATIENTS WHO ARE OR HAVE BEEN ENROLLED IN A CHEMICAL DEPENDENCY/SUBSTANCEABUSE PROGRAM, SOME INFORMATION MAY BE OMITTED. This clinical summary was aggregated from multiple sources. Caution should be exercised in using it in the provision of clinical care. This summary normalizes information from multiple sources, and as a consequence, information in this document may materially change the coding, format and clinical context of patient data. In addition, data may be omitted in some cases. CLINICAL DECISIONS SHOULD BE BASED ON THE PRIMARY CLINICAL RECORDS. [employer] provides no warranty or guarantee of the accuracy or completeness of information in this document.
== END | disposition home or self-care (01) ==
LOC: PSN 08:00
PROVIDERS: PCP Family Medicine; Referring Provider Psychiatry & Neurology Neurology; Visit Provider Psychiatry & Neurology Neurology
DX: I67.5 Moyamoya disease (principal); Z86.73 Personal history of transient ischemic attack (TIA), and cerebral infarction without residual deficits
CPT/HCPCS: 93005

== ENCOUNTER → 2024-10-17 | Outpatient (CLI) | payer BC, SELFPAY ==
[2024-10-17 11:41] LABS: Follicle Stimulating Hormone 42.1 mIU/mL
== END | disposition home or self-care (01) ==
LOC: BWCLAB 09:23
PROVIDERS: PCP Family Medicine; Referring Provider Obstetrics & Gynecology; Visit Provider Obstetrics & Gynecology
DX: E78.00 Pure hypercholesterolemia, unspecified (principal)
CPT/HCPCS: 36415; 82670; 83001; 83002

== ENCOUNTER → 2025-01-10 | Outpatient (CLI) | payer BC, SELFPAY ==
[2025-01-10 12:43] LABS: Prothrombin Time (Protime)PT. 13.1 SECONDS (11.7-14.9)
[2025-01-10 12:44] LABS: Partial Thromboplast Time 27.0 Seconds (24.1-36.2)
[2025-01-13 17:08] LABS: Dilute Russell Viper Venom 41.8 sec (0.0-47.0); Interpretation Comment: (.); PTT-LA 35.3 sec (0.0-43.5)
== END | disposition home or self-care (01) ==
PROVIDERS: PCP Family Medicine; Referring Provider Internal Medicine Medical Oncology; Visit Provider Internal Medicine Medical Oncology
DX: D68.62 Lupus anticoagulant syndrome (principal); Z86.73 Personal history of transient ischemic attack (TIA), and cerebral infarction without residual deficits
CPT/HCPCS: 36415; 85610; 85730